=== PATIENT | female | born 1985 | race Caucasian/White ===

== ENCOUNTER 2022-07-31 10:03 | Emergency (ER) | payer OTHER, SELFPAY ==
[2022-07-31 10:21] VITALS: BP 128/92; PULSE 100; RESP 18; TEMP 36.6; O2SAT 100
--- NOTE | 2022-07-31 10:29 | ED.GENADULT ---
HPI - General Adult General Chief complaint: Headache Stated complaint: migraine History of Present Illness HPI narrative: Patient is a 36 y/o female who presents to the [facility] via POV for an evaluation of a migraine that began 4 days ago. She reports that the pain is located on right frontal region of head. She reports pain to be moderate, constant, and pressure like in nature. She also reports intermittent nausea. No relief after taking ibuprofen, tylenol, warm compresses, and massage. Light and noise worsen pain. Hx of migraines and today's symptoms are identical to previous migraines. Related Data Home Medications Medication Instructions Recorded Confirmed alprazolam 1 mg tablet 1 mg BID 07/31/22 07/31/22 Allergies Allergy/AdvReac Type Severity Reaction Status Date / Time No Known Allergies Allergy Verified 07/31/22 10:27 Review of Systems Review of Systems: Pertinent negatives: Trauma, fever, chills, sweats, change in appetite, poor p.o. intake, worst headache of life, dizziness, lymphadenopathy, neck pain, vision changes, swelling, erythema, weakness, syncope, vertigo, LOC, seizure activity, memory loss, difficulty with coordination/gait/equilibrium, paresthesias, abdominal pain, nausea, vomiting, diarrhea, constipation, shortness of breath, cough, chest pain, and heart palpitations/murmurs. PMFSH Comments I have reviewed and agree with the patient's past medical, surgical, social, and family hx as documented by the RN. There is no relevant family history pertinent to the presenting complaint. Course Course Emergency Course: GENERAL: Well-appearing, well-nourished, and in no acute distress. Appears uncomfortable. HEAD: Normocephalic, atraumatic. No sinus tenderness or facial swelling appreciated. No evidence of ear bleeding or drainage from ears. No evidence of foreign bodies. No signs of basilar skull fracture: no hemotympanum, vazquez's sign, or raccoon's eyes. EYES: PERRLA and EOMI. No evidence of erythema, swelling, or drainage. ENT: Bilateral external ears and ear canals normal. Bilateral TMs are normal. No TM perforation. Nares clear, no septal hematoma or epistaxis. Bilateral turbinates without erythema/ swelling. Mucous membranes moist and pink. Uvula is midline without erythema and swelling. No evidence of petechial rash, cobblestoning, lesions, ulcers, erythema, swelling, exudates, peritonsillar abscess, tenting, or drooling. Breath odor and voice normal. NECK: Supple. No injury or pain appreciated. No lymphadenopathy or nuchal rigidity appreciated. CHEST: Bilateral lung valero are clear to auscultation. No respiratory distress. No evidence of cough or pleuritic cp upon examination. No evidence of deformity, flail chest, hematomas, contusions, lacerations. HEART: Regular rate and rhythm. No murmur, gallop, or rub heard. ABDOMEN: Soft, nontender, nondistended, normal active bowel sounds in all quadrants. No guarding. No rebound tenderness. No pulsatile or palpable abdominal mass(es). No CVAT. No evidence of seat belt sign. BACK: Full ROM. No evidence of deformity, spasm, mass, spinal tenderness, or swelling. Bilateral SLR tests negative. EXTREMITIES: Normal range of motion. No edema. SKIN: Warm, dry, no rash. No evidence of loss of sensation. NEURO: No focal deficits. Alert and oriented x4. EXTREMITIES: No evidence of decreased ROM or pain with active/passive ROM. Pulses palpable at 2+, strength 5/5, and cap refill < 3 seconds in affected extremity. Bilateral biceps, triceps, knee, and ankle reflexes are 2+. Sensation normal. Gait normal. Level of Care: Express Care Visit Vital Signs Vital signs: Vital Signs Temperature 97.8 F 07/31/22 10:21 Pulse Rate 100 07/31/22 10:21 Respiratory Rate 18 07/31/22 10:21 Blood Pressure 128/92 H 07/31/22 10:21 Pulse Oximetry 100 07/31/22 10:21 Oxygen Delivery Room Air 07/31/22 10:21 Tempera
[2022-07-31] MEDS: KETOROLAC (*BKC) 60 MG/2 ML VIAL IM (10:47)
[2022-07-31] MEDS: diphenhydrAMINE HCl CAP 25 MG CAPSULE 50 MG PO (10:48)
== END 2022-07-31 11:12 | disposition home or self-care (01) ==
PROVIDERS: Emergency Provider Nurse Practitioner Family
DX: G43.909 Migraine, unspecified, not intractable, without status migrainosus (principal); F41.9 Anxiety disorder, unspecified
CPT/HCPCS: 96372; 99203; A9270; G0463; J1885

== ENCOUNTER 2022-11-18 17:12 | Emergency (ER) | payer OTHER, SELFPAY ==
[2022-11-18 17:35] VITALS: BP 146/105; PULSE 86; RESP 20; TEMP 36.6; O2SAT 99
--- NOTE | 2022-11-18 20:11 | PC.NURSE ---
no answer at triage 2011
== END 2022-11-18 20:28 | disposition left against medical advice (07) ==
PROVIDERS: PCP Nurse Practitioner Family
DX: R10.2 Pelvic and perineal pain (principal)
CPT/HCPCS: 99199

== ENCOUNTER 2022-11-19 08:20 | Emergency (ER) | payer OTHER, SELFPAY ==
[2022-11-19 08:34] VITALS: BP 124/81; PULSE 85; RESP 18; TEMP 36.4; O2SAT 100
--- NOTE | 2022-11-19 08:48 | ED.ABDPAIN ---
HPI - Abdominal Pain General Chief Complaint: Abdominal Pain Stated Complaint: Abdominal Pain Time Seen by Provider: 11/19/22 08:49 Source: patient, RN notes reviewed and old records reviewed Mode of arrival: ambulatory Limitations: no limitations History of Present Illness HPI narrative: 37-year-old female presents to the [facility] with complaints of right lower quadrant abdominal pain for 3 days. Patient denies any previous abdominal surgeries. Denies fevers. Patient states that she went to the ER last night, waited 3 hours and left because they did nothing for her. 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 Denies nausea or vomiting. Only comfortable spot is when she is in a position MD elicited complaint: abdominal pain Onset (ago): day(s) (3) Related Data Allergies Allergy/AdvReac Type Severity Reaction Status Date / Time No Known Allergies Allergy Verified 11/19/22 08:41 Review of Systems Review of Systems: All systems reviewed & are unremarkable except as noted in HPI and below Constitutional: Constitutional: Reports no additional constitutional complaints Eyes: Eyes: Reports no additional eye complaints ENT: Reports system reviewed and no additional complaints, except as documented Cardiovascular: Cardiovascular: Reports no additional cardiovascular complaints, Denies chest pain and Denies dyspnea Respiratory: Respiratory: Reports no additional respiratory complaints, Denies chest congestion, Denies cough and Denies dyspnea Gastrointestinal: Gastrointestinal: Reports as per HPI, Reports abdominal pain (RLQ), Denies nausea and Denies vomiting Musculoskeletal: Musculoskeletal: Reports no additional musculoskeletal complaints Integumentary/Breasts: Skin/Breast: Reports system reviewed and no additional complaints, except as docu Neurologic: Reports system reviewed and no additional complaints, except as documented Psychiatric: Psychiatric: Reports no additional psychiatric complaints Allergic/Immunologic: Allergic/Immunologic: Reports no additional allergic/immunologic complaints PMFSH Past Medical History Medical History Anemia Anxiety COVID 08/29/22 Encounter to establish care History of frequent headaches Migraine headache without aura Morbid obesity with BMI of 45.0-49.9, adult Family History Family History Grandparent Cancer Father Diabetes mellitus Hypertension Mother Depression Anxiety Daughter Anxiety Depression Social History Social History Smoking status: Never smoker Alcohol intake: never Substance use: never Substance use type: does not use Lack of Transportation: No Lack of Food: Never True Current Housing: I Have Housing Concerned About Future Housing: No Difficulty Paying Gas/Electric Bills: No Difficulty Paying for Meds: No Currently Unemployed: No Education: High School Diploma/GED Difficulty w/ Childcare or Family Care: No Comments At the time of my signature, I reviewed and agree with the nursing past medical, surgical, social, and family history. There is no relevant family history pertinent to the patient complaint. Exam Const: General: cooperative, healthy appearing, comfortable, no acute distress, well developed, alert and well nourished Nutritional Appearance: well nourished and obese Orientation/consciousness: patient oriented x3 Limitations: no limitations HENMT: Head: normal to inspection Ears: hearing grossly normal bilaterally and external ears normal Face/Nose/Sinus: Normal external nose present, Normal nares present, Normal nasal mucous membranes and turbinates present and normal facial exam Face and sinus: normal facial exam Eyes: General: appearance normal, both eyes and all related structures Align
== END 2022-11-19 09:00 | disposition short-term general hospital (02) ==
LOC: EXPTROY 08:22
PROVIDERS: Emergency Provider Nurse Practitioner; PCP Nurse Practitioner Family
DX: R10.31 Right lower quadrant pain (principal)
CPT/HCPCS: 99212; G0463

== ENCOUNTER 2022-11-19 09:14 | Emergency (ER) | payer OTHER, SELFPAY ==
--- NOTE | ~2022-11-19 | CT_ITS ---
EXAMINATION: CT abdomen pelvis w con DATE: 11/19/2022 12:07 INDICATION: Right lower quadrant abdominal pain TECHNIQUE: Computed tomography (CT) of the abdomen and pelvis was performed with 100 mL Omnipaque-350 intravenous contrast. Automated exposure control and iterative reconstruction technique were employe d. The dose-length product was 1528.59 mGy-cm. COMPARISON: None FINDINGS: Mild atelectasis in the right middle lobe. Heart size is normal. No pericardial or pleural effusion. Focal hepatic steatosis at the ligamentum teres. Small hepatic calcification consistent with old gran ulomatous disease. Spleen, pancreas, bilateral adrenal glands and kidneys are normal. Bowels includin g the appendix are normal. Thin peripheral rim of enhancement at a 2.8 cm right ovarian cyst/follicle which abuts the posterior margin of the appendix. Left ovary, uterus and bladder are unremarkable. M inimal likely physiologic free fluid in the pelvis. No pathologically enlarged abdominal or pelvic ly mphadenopathy. Bones are unremarkable. IMPRESSION: 1. Small amount of likely physiologic free fluid in the pelvis and 2.8 cm right ovarian cyst/follicle which abuts the posterior margin of the normal appendix. No other acute intra-abdominal/pelvic proce ss. Reviewed, dictated and finalized at location A. [facility] PRIVATE IMPRESSION: 1. Small amount of likely physiologic free fluid in the pelvis and 2.8 cm right ovarian cyst/follicle which abuts the posterior margin of the normal appendix. No other acute intra-abdominal/pelvic process.
--- NOTE | ~2022-11-19 | US_ITS ---
Pelvic ultrasound. Clinical History: Right-sided pelvic pain Technique: Realtime transabdominal and transvaginal scanning of the pelvis was performed. Color flow Doppler and Doppler spectral analysis were performed. Findings: The uterus is anteverted. The endometrial stripe has a thickness of 19 mm. No focal mass i s identified. The right ovary measures 2.4 x 3.0 x 2.6 cm. No significant right ovarian or adnexal mass is seen. V ascular flow present in the right ovary on Doppler spectral analysis. The left ovary is not visualized. No significant left ovarian or adnexal mass is seen. There is trace free fluid in the cul de sac. Impression: Uterus and right ovary unremarkable. Left ovary not seen. Reviewed, dictated and finalized at [facility]. ORY HAND Impression: Uterus and right ovary unremarkable. Left ovary not seen.
[2022-11-19 09:19] VITALS: BP 135/80; PULSE 87; RESP 16; TEMP 36.7; O2SAT 100
--- NOTE | 2022-11-19 09:27 | ED.ABDPAIN ---
HPI - Abdominal Pain General Chief Complaint: Abdominal Pain Stated Complaint: RLQ ABD PAIN Time Seen by Provider: 11/19/22 09:22 History of Present Illness HPI narrative: Patient is a 37-year-old female with a history of migraine headaches, anxiety, here for evaluation of right lower quadrant abdominal pain for the past 3 days. Patient states the pain started out as a dull cramp but has since progressed in severity. The pain is relatively constant now. She has not attempted any medicine for her pain. She denies any associated symptoms, including nausea, vomiting, diarrhea, constipation, fevers, chills, vaginal discharge, dysuria, urgency or frequency. She has had no abdominal surgeries. Denies chance of . Related Data Allergies Allergy/AdvReac Type Severity Reaction Status Date / Time No Known Allergies Allergy Verified 11/19/22 08:41 Review of Systems Review of Systems: Gen.: Denies fevers or chills Eyes: Denies eye pain or visual change ENT: Denies congestion Respiratory: Denies shortness of breath or cough CV: Denies chest pain or palpitations GI: Reports abdominal pain. Denies nausea, emesis or diarrhea denies burning, urgency, frequency or hematuria Musculoskeletal: Denies back pain or muscle pain Neuro: Denies numbness, tingling, weakness or focal weakness Skin: Denies rash Except as documented, all other systems reviewed and negative [facility] Past Medical History Medical History Anemia Anxiety COVID 08/29/22 Encounter to establish care History of frequent headaches Migraine headache without aura Morbid obesity with BMI of 45.0-49.9, adult Family History Family History Grandparent Cancer Father Diabetes mellitus Hypertension Mother Depression Anxiety Daughter Anxiety Depression Social History Social History Smoking status: Never smoker Alcohol intake: never Substance use: never Substance use type: does not use Lack of Transportation: No Lack of Food: Never True Current Housing: I Have Housing Concerned About Future Housing: No Difficulty Paying Gas/Electric Bills: No Difficulty Paying for Meds: No Currently Unemployed: No Education: High School Diploma/GED Difficulty w/ Childcare or Family Care: No Exam Narrative: APPEARANCE: Uncomfortable appearing, obese. Head: Normocephalic and atraumatic. EYES: PERRLA/EOMI, conjunctivae clear NOSE: No nasal drainage EARS: External ear normal in appearance THROAT: Oropharynx is clear. Mucous membranes are moist. NECK: Supple. No adenopathy, no masses. RESPIRATORY: Airway patent, respirations nonlabored. Clear to auscultation bilaterally, no rales, rhonchi, wheezing. CARDIOVASCULAR: Regular rate and rhythm without murmurs, rubs, or gallops. ABDOMINAL: Tender to palpation in the right lower quadrant with guarding. Normoactive bowel sounds. Soft. MUSCULOSKELETAL: Extremities are warm and well-perfused. Moves all extremities well. No edema. NEURO: Normal speech. No focal neurologic deficits. SKIN: Skin is warm and dry. No rashes. PSYCHIATRIC: Normal affect/mood.. Course Vital Signs Vital signs: Vital Signs Temperature 98.1 F 11/19/22 09:19 Pulse Rate 87 11/19/22 09:19 Respiratory Rate 16 11/19/22 09:19 Blood Pressure 135/80 11/19/22 09:19 Pulse Oximetry 100 11/19/22 09:19 Oxygen Delivery Room Air 11/19/22 09:19 Temperature 98.1 F 11/19/22 09:19 Pulse Rate 87 11/19/22 09:19 Respiratory Rate 16 11/19/22 09:19 Blood Pressure 135/80 11/19/22 09:19 Pulse Oximetry 100 11/19/22 09:19 Oxygen Delivery Room Air 11/19/22 09:19 MDM - Abdominal Pain MDM Narrative Medical decision making narrative: 37-year-old female here for evaluation of right lower quadrant abdominal pain for the past 3 days. Jone
[2022-11-19 10:05] LABS: Alanine Aminotransferase 19 U/L (6-35); Albumin Level 4.2 g/dL (3.5-5.1); Alkaline Phosphatase 99 U/L (38-126); Anion Gap 5 mmol/L (8-16); Aspartate Amino Transferase 18 U/L (14-36); Bilirubin,Total 0.5 mg/dL (0.2-1.3); Blood Urea Nitrogen 15 mg/dL (7-17); Calcium 8.7 mg/dL (8.4-10.2); Carbon Dioxide 24 mmol/L (22-30); Chloride 104 mmol/L (98-107); Estimated CRCL calculation 111 ml/min; Estimated Glomerular Filt Rate > 60; Glucose 94 mg/dL (65-110); Lipase 65 U/L (23-300); Sodium 133 mmol/L (137-145)
[2022-11-19 10:16] LABS: Basophils Absolute Auto 0.1 K/mm3 (0.0-0.1); Basophils Percent Auto 1.3 % (0.2-1.2); Eosinophils Absolute Auto 0.1 K/mm3 (0-0.3); Eosinophils Percent Auto 2.4 % (0-4.4); Hemoglobin 12.1 g/dL (12.0-15.0); Immature Granulocyte Absolute 0.01 K/mm3 (0.00-0.031); Immature Granulocyte Percent A 0.2 % (0-0.5); Lymphocytes Absolute Auto 1.63 K/mm3 (0.9-3.2); Lymphocytes Percent Auto 35.9 % (18.3-44.2); Mean Corpuscular HGB Conc 28.8 g/dl (32-36); Mean Corpuscular Hemoglobin 27.1 pg (26-34); Mean Platelet Volume 10.8 fl (7.4-10.4); Monocytes Absolute Auto 0.6 K/mm3 (0.1-0.6); Monocytes Percent Auto 12.6 % (2.6-8.5); Neutrophils Absolute Auto 2.2 K/mm3 (1.3-6.7); Neutrophils Percent Auto 47.6 % (45.5-73.1); Platelet Count Result 260 k/mm3 (150-375); Red Blood Count 4.47 M/mm3 (4.2-5.4); Red Cell Distribution Width 13.4 % (11.5-14.5); White Blood Count 4.5 K/mm3 (4.5-10.0)
[2022-11-19] MEDS: MORPHINE SULFATE (*CRX) 4 MG/ML INJ IV PUSH (11:29)
[2022-11-19] MEDS: SODIUM CHLORIDE 0.9% IV 1,000 ML 999 ML IV CONT (11:29)
[2022-11-19 11:30] LABS: Beta HCG Quantitative < 2.39 mIU/ML
[2022-11-19 11:43] LABS: Appearance Urine Clear (Clear); Bilirubin Urine Negative (Negative); Blood Urine Negative (Negative); Color Urine Yellow (Yellow); Glucose Urine UA Negative (Negative); Ketones Urine Negative (Negative); Leukocyte Esterase Ur Negative LEU/UL (Negative); Nitrate Urine Negative (Negative); Protein Urine Negative (Negative); Urobilinogen Urine 0.2 mg/dL (<2.0)
[2022-11-19 11:59] LABS: Add Urine Microscopic? NO
[2022-11-19] MEDS: KETOROLAC 15 MG/ML VIAL (*BKC) IV PUSH (13:45)
[2022-11-19 14:04] VITALS: BP 133/64; PULSE 80; RESP 12; O2SAT 99
== END 2022-11-19 14:05 | disposition home or self-care (01) ==
PROVIDERS: Emergency Provider Physician Assistant; PCP Nurse Practitioner Family
DX: N83.201 Unspecified ovarian cyst, right side (principal)
CPT/HCPCS: 36415; 74177; 76830; 76856; 80053; 81003; 83690; 84702; 85025; 96361; 96374; 96375; 99284; J0131; J1885; J2270; J7030; Q9967

== ENCOUNTER 2022-12-16 16:24 | Emergency (ER) | payer OTHER, SELFPAY ==
[2022-12-16 16:45] VITALS: BP 155/97; PULSE 93; RESP 18; TEMP 36.4; O2SAT 99
--- NOTE | 2022-12-16 17:14 | ED.LOWEXIN ---
HPI - Extremity Injury (Lower) General Chief Complaint: Extremity Injury, Lower Stated Complaint: Lt Ankle Pain Time Seen by Provider: 12/16/22 17:14 Source: patient Mode of arrival: ambulatory Limitations: no limitations History of Present Illness HPI Narrative: 37-year-old female presenting for complaint of left lateral ankle pain/burning sensation for 5 days. She denies known injury. She states pain is constant, it feels like it is burning at rest and Experiences sharp pain with walking. She has taken occasional ibuprofen for pain. She denies swelling, bruising, numbness, tingling, weakness of the extremity. She denies history of similar symptoms. Related Data Home Medications Medication Instructions Recorded Confirmed ubrogepant 100 mg tablet (Ubrelvy) 100 mg PO .PRN PRN Migraine 12/16/22 12/16/22 Headache venlafaxine 75 mg tablet 75 mg PO DAILY 12/16/22 12/16/22 Allergies Allergy/AdvReac Type Severity Reaction Status Date / Time No Known Allergies Allergy Verified 12/16/22 16:54 Review of Systems Review of Systems: CONSTITUTIONAL: Denies body aches, fever, chills EYES: Denies visual changes ENT: Denies rhinorrhea, congestion CARDIOVASCULAR: Denies chest pain, palpitations, or edema. RESPIRATORY: Denies cough or dyspnea. GASTROINTESTINAL: Denies abdominal pain, nausea, vomiting, or diarrhea. SKIN: Denies rash, itching, or wounds. MUSCULOSKELETAL: Per HPI NEUROLOGIC: Denies headache, numbness, tingling, or weakness. All systems reviewed & are unremarkable except as noted in HPI and below PMFSH Past Medical History Medical History Anemia Anxiety COVID 08/29/22 Encounter to establish care History of frequent headaches Hyperlipidemia Migraine headache without aura Morbid obesity with BMI of 45.0-49.9, adult Screening for diabetes mellitus Family History Family History Grandparent Cancer Father Diabetes mellitus Hypertension Mother Depression Anxiety Daughter Anxiety Depression Social History Social History Smoking status: Never smoker Alcohol intake: never Substance use: never Substance use type: does not use Lack of Transportation: No Lack of Food: Never True Current Housing: I Have Housing Concerned About Future Housing: No Difficulty Paying Gas/Electric Bills: No Difficulty Paying for Meds: No Currently Unemployed: No Education: High School Diploma/GED Difficulty w/ Childcare or Family Care: No Comments At time of signature, I have reviewed and agree with nursing past medical, surgical, social and family history unless otherwise noted. Please see nursing chart for further information. There is no relevant family history pertinent to the presenting complaint Exam Narrative: GENERAL: Well-appearing EYES: PERRLA, conjunctivae clear NECK: Supple. CHEST: Speaks in full sentences. No respiratory distress. HEART: Regular rate and rhythm. Normal and equal peripheral pulses. EXTREMITIES: Left calcaneal tenderness with palpation laterally, medially and to plantar surface extending to mid dorsal foot. Foot has normal strength and sensation, normal range of motion; endorses pain with movement. No edema or ecchymosis. No open wounds or obvious deformity; alignment normal, pulse palpable and equal bilaterally, skin warm, dry, pink. Capillary refill less than 3 seconds. SKIN: Warm, dry, no rash. Course Course Emergency Course: Patient is aware of diagnosis, understands and agrees to treatment plan. Anticipatory guidance given. Patient agrees to follow-up as directed and is aware of reasons to seek care at the emergency department. Portions of this record may have been created with voice recognition software Level of Care: Express Care Visit Vital Signs Vital signs: Codi
== END 2022-12-16 17:30 | disposition home or self-care (01) ==
PROVIDERS: Emergency Provider Nurse Practitioner Family; PCP Nurse Practitioner Family
DX: M79.672 Pain in left foot (principal); E78.5 Hyperlipidemia, unspecified; F41.9 Anxiety disorder, unspecified; E66.01 Morbid (severe) obesity due to excess calories; Z68.43 Body mass index [BMI] 50.0-59.9, adult
CPT/HCPCS: 99213; G0463

== ENCOUNTER 2023-01-14 14:29 | Outpatient (CLI) | payer OTHER, SELFPAY ==
--- NOTE | ~2023-01-14 | XR_ITS ---
EXAMINATION: XR pelvis 1-2V DATE: 01/14/2023 14:51 INDICATION: Pelvic and perineal pain TECHNIQUE: An anteroposterior view of the pelvis was obtained. COMPARISON: 11/19/2022 FINDINGS: Bone alignment is normal. No fracture or suspected avascular necrosis. Mild bilateral sacroiliac oste oarthritis. Bilateral hip joint spaces are normal. Phleboliths in the pelvis. IMPRESSION: 1. Mild bilateral sacroiliac osteoarthritis. Reviewed, dictated and finalized at location B.
== END 2023-01-14 14:30 | disposition home or self-care (01) ==
PROVIDERS: PCP Nurse Practitioner Family; Visit Provider Obstetrics & Gynecology
DX: M47.818 Spondylosis without myelopathy or radiculopathy, sacral and sacrococcygeal region (principal); R10.2 Pelvic and perineal pain
CPT/HCPCS: 72170

== ENCOUNTER 2023-02-07 09:21 | Emergency (ER) | payer OTHER, SELFPAY ==
[2023-02-07 09:29] VITALS: BP 133/85; PULSE 93; RESP 16; TEMP 36.2; O2SAT 99
[2023-02-07 09:31] VITALS: BP 133/85; PULSE 93; RESP 16; TEMP 36.2; O2SAT 99
--- NOTE | 2023-02-07 09:41 | ED.SKABFB ---
HPI - Skin/Abscess/Foreign Bdy General Chief complaint: Skin/Abscess/Foreign Body Stated complaint: rash Time Seen by Provider: 02/07/23 09:41 Source: patient Mode of arrival: ambulatory Limitations: no limitations History of Present Illness HPI narrative: 37-year-old female presented for complaint of rash over body surface for about 5 days. She states this started about 2 days after she had a Nexplanon placed in the left arm. States the rash started the lower left arm and has spread. Rash is not on the face. States this red and itching. She denies pain or drainage from any of the sites. She denies any other changes to lotion, soap, detergent etc.. She denies shortness of breath, wheezing, lips, tongue, or throat swelling. Taking 3 benadryl at night. Contacted her ObGyn who advised steroid cream. Related Data Home Medications Medication Instructions Recorded Confirmed ubrogepant 100 mg tablet (Ubrelvy) 100 mg PO .PRN PRN Migraine 12/16/22 02/07/23 Headache Allergies Allergy/AdvReac Type Severity Reaction Status Date / Time No Known Allergies Allergy Verified 02/07/23 09:30 Review of Systems Review of Systems: CONSTITUTIONAL: Denies body aches, fever, chills, or sweats. EYES: Denies visual changes, redness, or discharge. ENT: Denies rhinorrhea, congestion CARDIOVASCULAR: Denies chest pain, palpitations, or edema. RESPIRATORY: Denies cough or dyspnea. GASTROINTESTINAL: Denies abdominal pain, nausea, vomiting, or diarrhea. SKIN: per HPI MUSCULOSKELETAL: Denies back pain, joint pain, or myalgia. NEUROLOGIC: Denies headache, numbness, tingling, or weakness. [facility] Past Medical History Medical History Anemia Anxiety COVID 08/29/22 Encounter to establish care History of frequent headaches Hyperlipidemia Migraine headache without aura Morbid obesity with BMI of 45.0-49.9, adult Screening for diabetes mellitus Family History Family History Grandparent Cancer Father Diabetes mellitus Hypertension Mother Depression Anxiety Daughter Anxiety Depression Social History Social History Smoking status: Never smoker Alcohol intake: never Substance use: never Substance use type: does not use Lack of Transportation: No Lack of Food: Never True Current Housing: I Have Housing Concerned About Future Housing: No Difficulty Paying Gas/Electric Bills: No Difficulty Paying for Meds: No Currently Unemployed: No Education: High School Diploma/GED Difficulty w/ Childcare or Family Care: No Comments At time of signature, I have reviewed and agree with nursing past medical, surgical, social and family history unless otherwise noted. Please see nursing chart for further information. There is no relevant family history pertinent to the presenting complaint Exam Narrative: GENERAL: Well-appearing HEAD: Normocephalic, atraumatic. EYES: conjunctivae clear, and EOMI. ENT: Mucous membranes moist. Oropharynx without edema, erythema or lesions. NECK: Supple. No lymphadenopathy CHEST: Clear to auscultation. HEART: Regular rate and rhythm. SKIN: Warm, dry. Scattered erythematous raised papular rash over body surface sparing upper torso and head. No apparent urticaria or oozing. NEURO: Alert and oriented x3. Course Course Emergency Course: Patient is aware of diagnosis, understands and agrees to treatment plan. Anticipatory guidance given. Patient agrees to follow-up as directed and is aware of reasons to seek care at the emergency department. Portions of this record may have been created with voice recognition software Level of Care: Express Care Visit Vital Signs Vital signs: Vital Signs Temperature 97.1 F L 02/07/23 09:29 Pulse Rate 93 02/07/23 09:29 Respiratory Rate 16 02/07/23 09:29 B
== END 2023-02-07 09:55 | disposition home or self-care (01) ==
PROVIDERS: Emergency Provider Nurse Practitioner Family; PCP Nurse Practitioner Family
DX: L30.9 Dermatitis, unspecified (principal); E78.5 Hyperlipidemia, unspecified; E66.01 Morbid (severe) obesity due to excess calories; Z68.43 Body mass index [BMI] 50.0-59.9, adult; Z86.16 Personal history of COVID-19
CPT/HCPCS: 99213; G0463

== ENCOUNTER → 2024-02-23 11:03 | Outpatient (CLI) | payer OTHER, SELFPAY | PROVIDERS: PCP Family Medicine; Visit Provider Nurse Practitioner Family | DX: M25.562 Pain in left knee (principal) | CPT/HCPCS: 73562 ==

== ENCOUNTER 2024-03-30 16:10 | Outpatient (CLI) | payer OTHER, SELFPAY ==
--- NOTE | ~2024-03-30 | MR_ITS ---
EXAMINATION: MR knee LT wo con DATE: 03/30/2024 17:06 INDICATION: S83.242A - Other tear of medial meniscus, current injury,... TECHNIQUE: Magnetic resonance imaging (MRI) of the left knee was performed without intravenous contra st. Sequences included axial PD-weighted FS FSE, coronal PD-weighted FSE and PD-weighted FS FSE, sagi ttal PD-weighted FSE, and sagittal T2-weighted FS FSE. COMPARISON: X-ray left knee 02/23/2024 FINDINGS: Medial compartment: Meniscus intact. Mild diffuse cartilage thinning and osteophytosis. Lateral compartment: Meniscus intact. Mild diffuse cartilage thinning and osteophytosis. Patellofemoral compartment: Retinacula intact. Mild osteophytosis. Mild cartilage thinning with partial thickness cartilage signa l abnormality and subchondral cyst formation. Ligaments and tendons: Thickening and intermediate signal intensity at the origin of the LCL. The ACL, PCL, and MCL are inta ct. Remaining flexor and extensor tendons are intact. Fluid: No significant fluid collection. Osseous/other: No suspicious focal or diffuse marrow signal. IMPRESSION: No acute ligamentous or meniscal tear detected. 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 Mild tricompartmental osteoarthritic changes. Reviewed, dictated and finalized at location K.
== END 2024-03-30 16:11 | disposition home or self-care (01) ==
LOC: ANHIMG 16:10
PROVIDERS: PCP Family Medicine; Visit Provider Orthopaedic Surgery
DX: S83.422A Sprain of lateral collateral ligament of left knee, initial encounter (principal); M17.12 Unilateral primary osteoarthritis, left knee; X58.XXXA Exposure to other specified factors, initial encounter
CPT/HCPCS: 73721

== ENCOUNTER 2024-05-08 14:45 | Outpatient (RCR) | payer OTHER, SELFPAY ==
--- NOTE | 2024-04-20 14:15 | OPREHPOC ---
Outpatient Therapy Plan of Care This is a Multidisciplinary Plan of Care that may contain components documented by all disciplines (PT, OT, and ST.) PT Problem 1 PT Problem #1 Knowledge Deficit PT Goal 1 Goal *indep with HEP Target Visit 6 PT Problem 2 PT Problem #2 Pain PT Goal 1 Goal 1* pt report pain at worst rating of 6/10 2* pt report no awakening from sleep due to knee pain 3* LE Functional Scale rating of 46% limitation in activity level Target Visit 6 PT Problem 3 PT Problem #3 Impaired Strength PT Goal 1 Goal increase strength of L hip and knee to improve stability to knee and improve patellar trackin* single leg standing x 10 seconds 2* pt perform mat strengthening exercises x 10 reps with 3# ankle wt Target Visit 6
--- NOTE | 2024-04-20 14:15 | PTOPEVAL1 ---
Assessment and note entered by Amaris Henry, PT Evaluation Information Assessment Status Evaluation Diagnosis L knee pain Onset December 2023 Subjective Information gradual increase in knee pain, no trauma to leg or knee; MRI- subchondral cyst, mild OA, chronic tear of LCL have had 2 injections into knee, help some; script for diclofenac- does not help; no restrictions from dr; activity: work at [employer]- walking and standing ~ 7 hours; Reported Pain Level Pain Score Self Report Additional Pain Score Comments pain range in the past week 2-910; medial knee- stab in knee cap decrease pain: sit, rest, heat increase pain: standing, more activity, squatting with sleeping awaken 2-3 x/week due to knee pain Assessment PT Clinical Summary Nuris has the diagnosis of L knee pain. She reports gradual increase in pain and knee injection x2- helped decrease the pain. LE functional scale self rating of 55% limitation activity level. Walking, activity level and sleeping are disrupted due to pain. With the evaluation: pain over medial joint line & distal- medial hamstring; pain is increased with knee flexion, prone hip extension and side lying hip ab & adduction motions; single leg standing 3 seconds due to pain in knee. Skilled PT services are indicated for modalities to decrease pain; therapeutic exercises to increase hip and knee strength and improve position of knee with education for HEP and pain management. Plan of Care Interventions Electrical Stimulation,Hot Pack/Cold Pack,Manual Therapy,Neuro Re-education,Patient Education,Therapeutic Activities,Therapeutic Exercise,Ultrasound,Other Other Interventions taping, [facility] PT Services Indicated Yes Treatment Frequency and 1-2x/wk for 6 visits Duration These treatments will address the objective and functional deficits as defined above. The patient will be advanced safely and appropriately in order for the patient to progre
--- NOTE | 2024-04-30 08:57 | PCPTNOTE ---
Pt NS visit today, called and left message of next appt. day and time. This is 2 NS.
--- NOTE | 2024-05-10 09:14 | PCPTNOTE ---
Pt canceled appt. this morning stating she could not make it.
--- NOTE | 2024-05-15 10:30 | PCPTNOTE ---
pt did not show for today's reevaluation appt; called and left her a voice mail message.
--- NOTE | 2024-06-04 10:43 | PTOPDC ---
Assessment and note entered by Amaris Henry, PT Discharge Report Assessment Status Discharge - Pt Not Present Diagnosis L knee pain Onset December 2023 Subjective Information pt was not seen this date. Assessment PT Clinical Summary Nuris received the PT evaluation on April 20 and one treatment session on May 08. She called/canceled 1 and did not show for 3 appointments. Therefore, she will be discharged at this time. The goals were not addressed. Plan of Care PT Services Indicated No
== END 2024-06-04 13:35 | disposition home or self-care (01) ==
LOC: ANHPT 14:45
PROVIDERS: PCP Family Medicine; Visit Provider Orthopaedic Surgery
DX: M17.12 Unilateral primary osteoarthritis, left knee (principal)
CPT/HCPCS: 97110; 97161; 97530

== ENCOUNTER 2024-06-23 11:15 | Emergency (ER) | payer OTHER, SELFPAY ==
[2024-06-23 11:21] VITALS: BP 117/90; PULSE 88; RESP 18; TEMP 36.2; O2SAT 100
--- NOTE | 2024-06-23 11:41 | ED.EAR ---
HPI - Ear Problem General Chief complaint: Ear Stated complaint: Earache Time Seen by Provider: 06/23/24 11:42 Source: patient Mode of arrival: ambulatory Limitations: no limitations History of Present Illness HPI Narrative: 38-year-old female presented for complaint of left ear pain for 2 days. Endorses the pain is sharp and constant. Unrelieved by Tylenol. Denies tinnitus, dizziness, ear drainage, nasal congestion, nausea, vomiting, fevers or chills. MD Complaint: ear pain Related Data Home Medications Medication Instructions Recorded Confirmed mecobalamin (vitamin B12) 1,000 1,000 mcg PO DAILY 02/27/24 06/23/24 mcg chewable tablet etonogestrel 68 mg subdermal See Rx Instructions .Route .COMPLEX 06/23/24 06/23/24 implant (Nexplanon) Allergies Allergy/AdvReac Type Severity Reaction Status Date / Time No Known Allergies Allergy Verified 06/23/24 11:26 Review of Systems Review of Systems: CONSTITUTIONAL: Denies malaise, chills, or fever. EYES: Denies visual changes, redness, or discharge. ENT: Denies rhinorrhea, congestion, sinus pain, and sore throat. Reports ear pain CARDIOVASCULAR: Denies chest pain, palpitations, or edema. RESPIRATORY: Denies cough or dyspnea. GASTROINTESTINAL: Denies abdominal pain, nausea, vomiting, diarrhea SKIN: Denies rash or itching. MUSCULOSKELETAL: Denies myalgia. NEUROLOGIC: Denies headache. All systems reviewed & are unremarkable except as noted in HPI and below PMFSH Past Medical History Medical History Acute sinusitis Anemia Anxiety B12 deficiency BMI 50.0-59.9, adult COVID 08/29/22 Elevated BP without diagnosis of hypertension Encounter to establish care Heartburn History of frequent headaches Hyperlipidemia Hypertension Left knee pain Migraine headache without aura Morbid obesity with BMI of 45.0-49.9, adult Screening for diabetes mellitus Tachycardia Surgical History Surgical History History of tubal ligation Family History Family History Grandparent Cancer Father Diabetes mellitus Hypertension Mother Depression Anxiety Daughter Anxiety Depression Social History Social History Smoking status: Never smoker Alcohol intake: never Substance use: never Substance use type: does not use Do You Feel Safe in your Home?: Yes Lack of Transportation: No Lack of Food: Never True Current Housing: I Have Housing Concerned About Future Housing: No Difficulty Paying Gas/Electric Bills: No Difficulty Paying for Meds: No Currently Unemployed: No Education: High School Diploma/GED Difficulty w/ Childcare or Family Care: No Living arrangements: with family Occupation/Education: occupation Additional occupation/education comments: [employer] Gender identity (if verbalized by the patient): Female Comments At time of signature, agree with nursing past medical, surgical, social and family history. There is no relevant family history pertinent to the presenting complaint Exam Narrative: GENERAL: Well-appearing, well-nourished, and in no acute distress. HEAD: Normocephalic EYES: PERRLA, conjunctivae clear ENT: Nares clear. Mucous membranes moist. Full dentures. TMs pearly stanley with normal light reflex and mild clear effusion bilaterally; no tragal tenderness. Oropharynx not erythematous without lesions. NECK: Supple. No lymphadenopathy CHEST: Clear to auscultation, breath sounds equal. HEART: Regular rate and rhythm. No murmur heard. SKIN: Warm, dry, no rash. NEURO: Alert and oriented x3. PSYCH: Normal mood and affect Course Course Emergency Course: Patient is aware of diagnosis, understands and agrees to treatment plan. Anticipatory guidance given. Patient agrees to follow-up as dir
== END 2024-06-23 11:49 | disposition home or self-care (01) ==
PROVIDERS: Emergency Provider Nurse Practitioner Family; PCP Family Medicine
DX: H65.03 Acute serous otitis media, bilateral (principal); E53.8 Deficiency of other specified B group vitamins; Z86.16 Personal history of COVID-19; E78.5 Hyperlipidemia, unspecified; I10 Essential (primary) hypertension; E66.01 Morbid (severe) obesity due to excess calories; Z68.43 Body mass index [BMI] 50.0-59.9, adult
CPT/HCPCS: 99213; G0463

== ENCOUNTER 2025-04-05 13:28 | Emergency (ER) | payer OTHER, SELFPAY ==
--- OUTSIDE RECORDS SUMMARY | 2025-04-05 13:30 | XMS_ITS | Continuity of Care Document ---
Author Organization [employer] Address [address] [place] [address] Phone Care Team Providers Care Patrol Supervisor Name Role Phone Jose R Napier DMD Unavailable Unavailable Medications Medication Instructions Dosage Effective Dates (start - stop) Status Comments hydrocodone 7.5 mg-acetaminophen 325 mg tablet take 1 tablet by mouth every four hours to relieve pain - Active Procedures Procedure Date Extraction, Erupted Tooth Or Exposed Emeli t (Elevati Extraction, Erupted Tooth Or Exposed Emeli t (Elevati Extraction, Erupted Tooth Or Exposed Emeli t (Elevati Extraction, Erupted Tooth Or Exposed Emeli t (Elevati Extraction, Erupted Tooth Or Exposed Emeli t (Elevati Extraction, Erupted Tooth Or Exposed Emeli t (Elevati Extraction, Erupted Tooth Or Exposed Emeli t (Elevati Extraction, Erupted Tooth Or Exposed Emeli t (Elevati Limit Oral Eval-prob Focused OBSERVATION CARE Advance Directives Directive Yes / No Effective Date File Name No Information Encounters Encounter Description Practice Location Reason(s) For Visit Diagnoses Date Provider Providers Copied on Encounter [facility], [address], [place], [place], [id number], [place] tel:[phone] [facility] DEN-Dental caries, unspecifiedDEN -Acute apical periodontitis of pulpal origin [address] Karthikeyan Odell. [address], [place], [place], [id number] , [place]. tel:[phone] Referring Provider: Jose R Kays E, [address], [place], [address] . tel:[phone] [facility], [address], [place], [place], [id number], [phone] [facility] DEN-Dental caries, unspecified Maryse Bullock. [address], [place], [place], [id number] , [place]. [phone] Referring Provider: Kobe Dumont, [address], [place], [address] . tel:[phone] [facility], [address], [place], [place], [id number], [place] tel:[phone] [facility] DEN-Encounter for dental exam and cleaning w abnormal findings Nilemarisol Kobe. [address], [place], [place], [id number] , [place]. tel:[phone] Referring Provider: Kobe Dumont, [address], [place], [address] . tel:[phone] [facility], [address], [place], [place], [id number], [phone] [facility] No Information 1 Naren Foreman. [address] [place], [address], [place]. tel:[phone] Referring Provider: Toni Samuel, [address] [place], [address]. Family History Family Member Type Diagnosis Age At Onset No Information Payers Payer name Insurance type Covered republican ID Sharoncarmen raúlesthela(s) Nura [employer] CI [id number] Social History Type Description Quantity Date Captured Comments Sex Female Smoking Status No Information Chief Complaint And Reason For Visit No Information Reason For Referral Reason For Referral No Information History Of Present Illness Encounter Date Complaint History Of Prese nt Illness No Information Functional Status Date Functional Assessmen t No Information Instructions Date Instruction Additional Infor mation No Information Assessments Type Assessment Date No Information Patient Care Teams Name Effective Dates (start - stop) Status Members No Information
--- OUTSIDE RECORDS SUMMARY | 2025-04-05 13:30 | XMS_ITS | Data Portability ---
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 Plan of Treatment Reminders Order Date Submit Date Provider Last Modified By Organization Details Last Modified Time Details Appointments None recorded. Lab test, urine 2022 023 [place], [address], [place], [address], 10:53:44 Referral None recorded. Procedures None recorded. Surgeries None recorded. Imaging US, transvagina l 2022 023 [email or web address] [place], [address], [place], [address], 18:51:46 Medication Orders tramadol 50 mg tablet 2022 023 [id number], [address], [place], [place], [id number], 11:34:45 Patient TargetsNo targets recorded. Patient InstructionsNo instructions recorded. Reason for Referral None Reported. Results Created Date Observation Date Name Description Value Unit Range Abnormal Flag Note LastModifiedBy Organization Detail LastModifiedTime 01/11/2001/10/2023 SURGI LOYDA PATHO LOGY surgical pathology SEE RESULT S BELOW CASE REPOR T: Surgi loyda Patho logy Repor t Case: [id number] Autho rizin g Provi chaim: Debby Moore MD Colle cted: 01/10 1329 Order ing Locat ion: [place] Patho logy Recei shu: 01/11 0254 Patho logis t: Patrick Felix MD Speci men: Endom etriu m, Endom etria l FINAL DIAGN OSIS: Endom etriu m, curet tage: -Secr etory phase endom etriu m (appr oxima tely day 17). -No hyper plasi a or malig brenden ident ified . Elect danielle acosta by Patrick Felix MD on 2022 at 9:33 AM ----- ----- ----- ----- ----- ----- ----- ----- ----- ----- ----- ----- ----- ----- ----- ----- ----- ---- CLINI LOYDA INFOR MATIO N: n85.9 MICRO SCOPI C DESCR IPTIO N: A micro scopi c exami natio n was perfo rmed. GROSS DESCR IPTIO N: A. Endom etriu m. The speci men is label ed with the patie nt's name, demog raphi cs and endom etria l curet tings . Recei shu in forma elliot is a 4.5 x 3.2 x 1.0 [address] [facility] [place] tissu e. The entir e speci men is submi tted in casse ttes A1-A7 . Gross ed by Jadon Pereyra on Not Available [facility] (Lab) [address], [place], [address], 01/12/2023 10:35:58 01/11/20 23 01/10/2023 pregn didi test, urine HCG negati ve Not Available [place] [address], [place], [address], 01/10/2023 10:53:00 01/15/20 23 01/14/2023 XR, pelvi s, 1 or 2 view No observ ation record ed. [address], [place], [address], 01/15/2023 10:18:13 02/24/20 23 02/23/2023 US, trans vagin al No observ ation record ed. [email or web address] [place] [address], [place], [address], 02/23/2023 15:50:26 02/24/20 23 02/23/2023 US, trans vagin al No observ ation record ed. [email or web address] [place] [address], [place], [address], 02/23/2023 22:09:55 Result Notes None recorded. Procedures Surgical History Date Name Laterality Status Provider Name and Address Organization Details Recorded Time 01/25/20 23 Control Implant Insertion completed Phillip Moore MD [address], [place], [address], [facility] 01/24/2023 20:42:03 01/11/20 23 Hysteroscopy completed Phillip Moore MD [address], [place], [address], [facility] 01/10/2023 11:35:48 01/11/20 23 Hysteroscopy [facility] 01/17/2023 09:39:18 09/02/20 22 Date of Last Pap Smear completed Ai Calhoun [facility] 11/23/2022 14:27:55 10/31/19 11 Tubal Ligation completed Gill [facility] 09/02/2022 11:37:51 Imaging Results None recorded. Procedure Notes None recorded. Medical Equipment None Reported. Allergies No known drug allergies Medications Name Sig Start Date Stop Date Status Note LastModified by Organization Details LastModified Time cyclobenzap rine 10 mg tablet 09/02 completed Not Available Not Available Not Available venlafaxine ER 75 mg capsule,ext ended release 24 hr 09/02 completed Not Available Not Available Not Available venlafaxine 75 mg tablet TAKE 1 TABLET BY MOUTH TWICE DAILY active Not Available Not Available No t Available ibuprofen 800 mg tablet TAKE 1 TABLET BY MOUTH 2 HOURS BEFORE THE PROCEDURE active Not Available Not Available No t Available alprazolam 1 mg tablet TAKE 1 TABLET BY MOUTH TWICE DAILY active Not Available Not Available No t Available hydrocodone 5 mg-acetamin ophen 325 mg tablet TAKE 1 TABLET BY MOUTH FOUR TIMES DAILY active Not Available Not Available No t Available ondansetron HCl 8 mg tablet TAKE 1 TABLET BY MOUTH 2 HOURS BEFORE THE PROCEDURE active Not Available Not Available No t Available meloxicam 15 mg tablet TAKE 1 TABLET BY MOUTH DAILY active Not Available Not Available No t Available metronidazo le 0.75 % (37.5 mg/5 gram) vaginal gel INSERT ONE APPLICATO RFUL VAGINALLY AT BEDTIME FOR 5 DAYS active Not Available Not Available No t Available famotidine 40 mg tablet TAKE 1 TABLET BY MOUTH DAILY active Not Available Not Available No t Available venlafaxine ER 150 mg capsule,ext ended release 24 hr TAKE 1 CAPSULE BY MOUTH DAILY 09/02 completed Not Available Not Available Not Available phentermine 37.5 mg tablet 37.5 MG ORALLY DAILY MUST ADMINISTE R 30 MINUTES BEFORE OR 1-2 HOURS AFTER BREAKFAST active Not Available Not Available No t Available hydrocodone 10 mg-acetamin ophen 325 mg tablet TAKE 1 TABLET BY MOUTH 2 HOURS BEFORE THE PROCEDURE active Not Available Not Available No t Available tramadol 50 mg tablet TAKE 1 TABLET BY MOUTH EVERY 6 HOURS active Not Available Not Available No t Available amitriptyli ne 50 mg tablet 09/02 completed Not Available Not Available Not Available alprazolam 0.5 mg tablet TAKE 1 TABLET BY MOUTH 2 HOURS BEFORE THE PROCEDURE active Not Available Not Available No t Available zolmitripta n 2.5 mg tablet 09/02 completed Not Available Not Available Not Available prednisone 50 mg tablet TAKE 1 TABLET BY MOUTH DAILY WITH FOOD FOR 5 DAYS 09/02 completed Not Available Not Available Not Available hydrochloro thiazide 25 mg tablet 09/02 completed Not Available Not Available Not Available Alprazolam Intensol 1 mg/mL oral concentrate active Not Available Not Available Not Available metoprolol succinate ER 25 mg tablet,exte nded release 24 hr TAKE 1/2 TABLET BY MOUTH DAILY active Not Available Not Available No t Available ibuprofen 600 mg tablet TAKE 1 TABLET BY MOUTH THREE TIMES DAILY WITH MEALS FOR 5 DAYS active Not Available Not Available No t Available methylpredn isolone 4 mg tablets in a dose pack FOLLOW PACKAGE DIRECTION S active Not Available Not Available No t Available ondansetron 4 mg disintegrat ing tablet DISSOLVE 1 TABLET ON THE TONGUE EVERY 8 HOURS 09/02 completed Not Available Not Available Not Available rizatriptan 5 mg tablet 09/02 completed Not Available Not Available Not Available escitalopra m 10 mg tablet TAKE 1 TABLET BY MOUTH DAILY active Not Available Not Available No t Available escitalopra m 20 mg tablet TAKE 1 TABLET BY MOUTH DAILY active Not Available Not Available No t Available nitrofurant oin monohydrate /macrocryst als 100 mg capsule TAKE 1 CAPSULE BY MOUTH EVERY 12 HOURS FOR 5 DAYS. TAKE WITH A MEAL OR FOOD active Not Available Not Available No t Available FeroSul 325 mg (65 mg iron) tablet TAKE 1 TABLET BY MOUTH EVERY DAY active Not Available Not Available No t Available Nexplanon 68 mg subdermal implant Inject by subcutane ous route. active Not Available Not Available No t Available Slynd 4 mg (28) tablet Take 1 tablet every day by oral route with meals for 90 days. 2021 active Not Available Not Available Not Avai lable Ubrelvy 100 mg tablet active Not Available Not Available No t Available Ubrelvy 50 mg tablet 09/02 completed Not Available Not Available Not Available Ubrelvy active Not Available Not Avail able Not Available Paxlovid 300 mg (150 mg x 2)-100 mg tablets in a dose pack 09/02 completed Not Available Not Available Not Available Vitals Date Recorded Body height Body mass index (BMI) Body weight Systolic blood pressure Diastolic blood pressure Provider Name and Address Organization Details Last Updated DateTime 01/10/2023 154.94 cm 50.3 kg/m2 410650.5 7 g 132 mm[Hg] 93 mm[Hg] Ai Calhoun [facility] 3 10:36:02 Date Recorded Body height Body mass index (BMI) Body weight Systolic blood pressure Diastolic blood pressure Provider Name and Address Organization Details Last Updated DateTime 01/17/2023 154.94 cm 52.5 kg/m2 406847.6 8 g 135 mm[Hg] 96 mm[Hg] [facility] 3 09:38:41 Date Recorded Body height Body mass index (BMI) Body weight Systolic blood pressure Diastolic blood pressure Provider Name and Address Organization Details Last Updated DateTime 01/24/2023 154.94 cm 52.5 kg/m2 756146.6 8 g 125 mm[Hg] 87 mm[Hg] [facility] 3 15:48:28 Date Recorded Body height Body mass index (BMI) Body weight Systolic blood pressure Diastolic blood pressure Provider Name and Address Organization Details Last Updated DateTime 03/07/2023 154.94 cm 48.9 kg/m2 602004.4 2 g 119 mm[Hg] 85 mm[Hg] [facility] 3 11:46:29 Social History Question Answer Notes LastModified by Organizat ion Details LastModified Time Tobacco Smoking Status Never Smoker [facility] 03/07/2023 10:50:41 Do You Have An Advance Directive? No Information n ot available 11/23/2022 Are You Blind Or Do You Have Difficulty Seeing? No Information n ot available 11/23/2022 What Is Your Level Of Caffeine Consumption? Moderate Information not available 11/23/2022 How Much Tobacco Do You Chew? None Information not available 11/23/2022 In The 14 Days Before Symptom Onset, Have You Had Close Contact With A Laboratory-confirm ed COVID-19 While That Case Was Ill? No Information n ot available 11/23/2022 In The 14 Days Before Symptom Onset, Have You Had Close Contact With A Person Who Is Under Investigation For COVID-19 While That Person Was Ill? No Information not available 11/23/2022 Have You Been To An Area Known To Be High Risk For COVID-19? No Information not available 11/23/2022 Are You Deaf Or Do You Have Serious Difficulty Hearing? No Information not available 11/23/2022 What Type Of Diet Are You Following? REGULAR Information n ot available 11/23/2022 What Is The Highest Grade Or Level Of School You Have Completed Or The Highest Degree You Have Received? [id number] Information not available 11/23/2022 Are There Any Guns Present In Your Home? No Information not available 11/23/2022 Do You Use Protection During Sex? No Information not available 11/23/2022 Do You Use Your Seat Belt Or Car Seat Routinely? Yes Information not available 11/23/2022 Do You Have Smoke And Carbon Monoxide Detectors In Your Home? Yes Information not available 11/23/2022 How Much Tobacco Do You Smoke? No Information not available 11/23/2022 Do You Use Sunscreen Routinely? Yes Information not available 11/23/2022 Have You Used IV Drugs? No Information not available 11/23/2022 Sex: Unknown Functional Status Question Answer Note LastModified by Organizat ion Details LastModified Time Do you use any illicit or recreational drugs? No Information not available 09/02/2022 Do you or have you ever used any other forms of tobacco or nicotine? No [email or web address] Information not available 03/07/2023 What is your level of alcohol consumption? None Information not available 09/02/2022 Are you able to walk? 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 Moderate Information not available 11/23/2022 Mental Status Question Answer Note LastModified by Organization D etails LastModified Time Do you feel stressed (tense, restless, nervous, or anxious, or unable to sleep at night)? [id number] Information not available 11/23/2022 Family History Relationship Description Onset Age of this Age Resolved Age Notes LastModified by Organization Details LastModified Time Mother Anxiety disorder [email or web address] Not available 2021 11:36:05 Daughter Anxiety disorder [email or web address] Not available 2021 11:36:05 Medical History Condition Response Other N Blood Transfusion N Dermatologic Disorders N Gestational Diabetes N Anxiety Disorder Y Autoimmune disease N Arthritis N Polyps N Infertility N Acid Reflux (GERD) N Cancer N Varicosities N Stroke N Neurologic/Epilepsy N Fibromyalgia N Headaches Y Kidney Disease N Heart Problems N Kidney or Bladder Problems N Eating Disorder N Art (IVF or FET) N Hepatitis/Liver Disease N No Past Medical History N Urinary Tract Infection N Asthma N Trauma/Violence N Thrombophilias N Allergies (Food, seasonal, environmental ) N Breast Cancer N Drug/Latex Allergies/Reactions N Lung Disease N Defects or Inherited Disease N Breast Problem N Hematologic disorders N Anesthesia Complications N History of STI N Deep Vein Thrombosis N Polycystic ovary syndrome N History of abnormal pap N Endometriosis N High Cholesterol N Thyroid Problems N GI Problems N Anemia Y Psychiatric Illness N Ovarian Cancer N Diabetes N Pulmonary (TB, Asthma) N Eczema N Abuse/Domestic Violence N Depression/ depression N Heart Disease N Pre-Eclampsia N Hypertension N Osteoporosis N Gynecological History Statement/Question Response Date of LMP 08/25/2022 On BCP's at Conception? N N Was last menstrual period normal Y STIs/STDs N HPV Vaccine Y Duration of Flow (days) 7 Current Control Method Implant Frequency of Cycle (Q days) 8 Sexually Active? Y Unknown Age of first menstrual cycle 15 Date of Last Pap Smear 09/02/2022 Sexual Problems? N Desired Control Method None LMP Unknown N Obstetrics History GPAL:G 2 P 2 0 0 2 Type Value Full Term 2 Living 2 Total 2 Past Encounters Encounter ID Performer Location Encounter Start Date Encounter Closed Date Diagnosis/Indication Diagnosis SNOMED-CT Code Diagnosis ICD10 Code Diagnosis Note [id number] Yue Dhillon [facility] [address] [address] 09/02/2022 10:59:27 09/02/2022 14:23:08 Gynecologic examination 86251505 Z01.419 Take Calcium with Vitamin D 1200mg daily if not receiving in daily diet. It is strongly advised to have an annual flu shot and up can obtain at most pharmacies . If you have not had a TDap shot in the last 10 years you should obtain one as well. Discussed with patient & provided with informatio n regarding Gardisil vaccine to prevent the 4 strains for HPV that cause cervical cancer if under age 26. Encourage safe sexual practices, to use condoms and limit partners if not already in a monogamous relationsh ip. Do monthly self breast exams. Have mammogram yearly or every other year depending on family history. BRCA testing is now available for patients with strong genetic history of female cancer. If interested contact the office. Engage in daily exercise of low impact aerobic exercise 45-60 minutes 4-5 times weekly. Avoid tobacco and illicit drugs as well as using moderation with alcohol intake less than 1-2 8 oz beverages daily. This lifestyle behavior pattern will lead to less health conditions and longer life span. If BMI greater than 25 weight watchers or dietary consult advised. Patient received above instructio ns, and questions have been answered. If you have any questions please call or respond to this email. Patient was made aware of the patient portal and may obtain a paper copy of today's plan if desired. Pap/hpv sent STD Screen declined Genetic Screen discussed Colon Screen na Dexa Screen na Routine Labs PCPMammo na Menstrual migraine 73726 000 G43.829 Discussed all control options in great detail. Pt would like to start POP. She is aware of the risks and benefits. She has contraindi cations to use of OCP or other estrogen containing hormonal therapy. Pt will start her pills on the first tuesday following the start of her period. She is aware it is not effective for control the first month. She is also aware of the importance of taking at the same time every day. Encouraged use of condoms as the pill does not protect against STD's. Will return in 3 months for med check. Consent was read and signed. Pt verbalized understand ing. Trial SLYND x 3mos with med checkHx of tubal ligation [id number] [facility] [address] [address] 11/23/2022 13:52:36 11/23/2022 16:33:07 Cyst of right ovary 8718924611 1442080 N83.201 Today we agreed on the following: R/P US x 6wksPain medication x 5 days (discussed use)--writ ten Rx given and copied to chartComfo rt care discussed ED precaution s:Patient is to contact office or go to nearest ED/Urgent care if fever >/= 100.1, pain, excessive bleeding, unusual drainage or swelling in area of concern; or experienci ng worsening sx's or new onset of concerning sx's. Understand ing verbalized . All questions answered to patient satisfacti on. Time spent in visit is a total of 26 mins with at least 50% of visit consisting of counseling and review of plan of care. [id number] Phillip Moore MD [place] [address] [address] 12/09/2022 16:43:56 12/09/2022 17:56:20 Pain in pelvis 33855754 R10.2 [id number] Phillip Moore MD [place] [address] [address] 12/22/2022 14:17:36 12/22/2022 15:59:49 Pain in pelvis 55808499 R10.2 Anovular menstruation 27 135987 N93.8 Lesion of endometrium 92 34872884 9101 N85.9 this patient is a 37-year-ol d female with irregularl y irregular bleeding. Her bleeding is likely anovulator y bleeding. She also is here for follow-up on ultrasound . This is which she primarily her for for ultrasound findings. She has a thickened endometriu m with likely endometria l polyp. We discussed endometria l polyps and thickened endometriu m. We discussed the risk of prolonged anovulator y bleeding. I recommende d that she have hysterosco py D and C with possible polypectom y here in the office. We agreed to that. Talked about treatment of anovulator y bleeding. Talked about prevention of endometria l cancer. She understand s that this is well organ after do going forward. She has agreed to Nexplanon insertion. She needs follow-up ultrasound for left ovarian cyst. Talked about ovarian cyst. She does have some right-side d pain. Her cyst on the left. Perhaps her pain will be improved with remove the cyst. Nexplanon will also be a good treatment for gynecologi c pain. Her pain is intense that time she bleeds. Spent over 40 minutes face-to-fa ce. We talked about endometria l polyps And we discussed pelvic pain.. Talked about on I believe ed bleeding. Talked about ovarian cyst. Talked about 3 complex topics. We talked about the etiology, natural history, treatment. Cyst of ovary 40146728 N 83.209 [id number] Phillip Moore MD [place] [address],[facility] [place] [address] 01/10/2023 10:23:04 01/10/2023 11:57:15 Pre-surgery testing 530627433 Z01.89 Pain in pelvis 80546780 R10.2 Lesion of endometrium 92 45719269 9101 N85.9 Hysterosco py D&C was performed. She tolerated well. There was just thickened endometriu m. There was no polyp. We talked about her pelvic pain for some time. We agreed to treat short-term with narcotic pain medication to control her pain. Her pain is severe. We will follow up in less than a week to talk about her pain and consider treatment options and diagnostic options. [id number] Phillip Moore MD [place] [address],[facility] [place] [address] 01/17/2023 09:27:47 01/17/2023 10:56:53 Irregular periods 14972072 N92.6 This patient is a 37-year-ol d female presents for irregular bleeding follow-up. She would like to be treated with Nexplanon for irregular bleeding and prevention of endometria l cancer. She had hysterosco py D and C for suspected polyp. No polyp was observed. Endometria l curettage was performed. The biopsy was normal. We discussed our plan going forward and I agreed to insert Nexplanon. She will return for that procedure. [id number] Phillip Moore MD [place] [address],[facility] [place] [address] 01/24/2023 15:16:30 01/25/2023 11:38:14 Contraception care management 101032535 Z30.9 Nexplanon inserted without complicati ons. [id number] Phillip Moore MD [place] [address] [address] 02/23/2023 15:15:03 02/23/2023 15:49:59 Cyst of left ovary 5605299610 8569670 N83.292 R10.2 [id number] Phillip Moore MD [place] [address] [address] 03/07/2023 10:50:34 03/07/2023 12:34:13 Pain in pelvis 07171133 R10.2 Cyst of ovary 44349105 N 83.209 7-year-old female who presents for treatment of abnormal uterine bleeding with Nexplanon and ovarian cyst. Ovarian cysts resolve on recent ultrasound . She continues to have some bleeding. Was a little painful. Overall it has improved her bleeding and her pain. Continue to observe. We spent over 20 minutes face-to-fa ce. More than 50% was counseling she will follow-up as needed Health Concerns Section Related Observation LastModified by Organization Detai ls LastModified Time None Recorded Concern Status LastModified by Organization Details LastModified Time None Recorded Advance Directives Directive N: Payers Encounter Date Sequence Insurance Name Policy Number Policy Arreola Covered Member ID Arreola Member ID Guarantor Name 01/10/2023 1 [facility] ON OR AFTER 04/30/21 (MEDICAID REPLACEMENT - HMO) Candie Salazaron [id number] Candie Burns 01/17/2023 1 [facility] ON OR AFTER 04/30/21 (MEDICAID REPLACEMENT - HMO) Candie Burns [id number] Candie Burns 01/24/2023 1 [facility] ON OR AFTER 04/30/21 (MEDICAID REPLACEMENT - HMO) Candie Burns [id number] Candie Burns 02/23/2023 1 [facility] ON OR AFTER 04/30/21 (MEDICAID REPLACEMENT - HMO) Candie Burns [id number] Candie Burns 03/07/2023 1 [facility] ON OR AFTER 04/30/21 (MEDICAID REPLACEMENT - HMO) Candie Burns [id number] Candie Burns Notes Date Note Type Note Provider Name and Address Organization Details Recorded Time 01/10/2023 text/html patient presents for hysteroscopy D&C. Phillip Moore MD [address], [place], [address], [facility] 01/10/2023 11:38:47 01/17/2023 text/html This patient is a 37-year-old female presents for irregular bleeding follow-up. She would like to be treated with Nexplanon for irregular bleeding and prevention of endometrial cancer. She had hysteroscopy D and C for suspected polyp. No polyp was observed. Endometrial curettage was performed. The biopsy was normal. We discussed our plan going forward and I agreed to insert Nexplanon. She will return for that procedure. Phillip Moore MD [address], [place], [address], [facility] 01/17/2023 10:00:04 01/24/2023 text/html Presents for Nexplanon insertion for abnormal vaginal bleeding. Phillip Moore MD [address], [place], [address], [facility] 01/24/2023 20:44:24 03/07/2023 text/html 7-year-old femal e who presents for treatment of abnormal uterine bleeding with Nexplanon and ovarian cyst. Ovarian cysts resolve on recent ultrasound. She continues to have some bleeding. Was a little painful. Overall it has improved her bleeding and her pain. Continue to observe. We spent over 20 minutes [id number]. More than 50% was counseling she will follow-up as needed Phillip Moore MD [address], [place], [address], [facility] 03/07/2023 12:13:59 OBGyn Episode Ob Episode Information Episode Created Date Number of Fetuses Patient Bloodtype Patient rh Status Prepregnancy Weight lbs Domestic Partner Domestic Partner Phone Father Name Rib Trim Separator Status 09/02/20 22 1 CLOSED Fetus Data First Name Last Name Admitted to NICU Weight (g) Sex Living Outcome Pediatric Complications Fetus ID Race Codes Race Delivery Type [id number] [id number] F [id number] Vaginal Delivery Luis Calculation Initial Luis Date Initial Exam Date Initial Exam Provider Initial Ultrasound Date Last Menstrual Period Date Ultra Sound Weeks Gestation 0 Eighteen To Twenty Week Luis Update Ultra Sound Date Fundal Height At Umbil Quickening Date Ultra Sound Latest Weeks Gestation Final Luis Confirmed By Final Luis Confirmed Date Final Luis Date Ultra Sound Latest Days Gestation 0 0 Menstrual History Last Menstrual Date Menses Monthly On Bcp Conception Prior Menses Frequency Hcg Plus Date Menarche Onset Age Delivery Information Delivery Date Delivery Type Labor Anesthesia Weeks Gestation Incision Type Labor Labor Length Hrs Delivered By Post Complications Tubal Sterilization Discharge Date Comments 6 Discharge Information Feeding Method Contraceptive Method Maternal HG B and HCT Levels Ob Episode Information Episode Created Date Number of Fetuses Patient Bloodtype Patient rh Status Prepregnancy Weight lbs Domestic Partner Domestic Partner Phone Father Name Rib Trim Separator Status 09/02/20 22 1 CLOSED Fetus Data First Name Last Name Admitted to NICU Weight (g) Sex Living Outcome Pediatric Complications Fetus ID Race Codes Race Delivery Type [id number] F [id number] Vaginal Delivery Luis Calculation Initial Luis Date Initial Exam Date Initial Exam Provider Initial Ultrasound Date Last Menstrual Period Date Ultra Sound Weeks Gestation 0 Eighteen To Twenty Week Luis Update Ultra Sound Date Fundal Height At Umbil Quickening Date Ultra Sound Latest Weeks Gestation Final Luis Confirmed By Final Luis Confirmed Date Final Luis Date Ultra Sound Latest Days Gestation 0 0 Menstrual History Last Menstrual Date Menses Monthly On Bcp Conception Prior Menses Frequency Hcg Plus Date Menarche Onset Age Delivery Information Delivery Date Delivery Type Labor Anesthesia Weeks Gestation Incision Type Labor Labor Length Hrs Delivered By Post Complications Tubal Sterilization Discharge Date Comments 1 Discharge Information Feeding Method Contraceptive Method Maternal HG B and HCT Levels
--- OUTSIDE RECORDS SUMMARY | 2025-04-05 13:31 | XMS_ITS | Continuity of Care Document ---
Author Organization [facility] Address [address] [place] [address] Phone Care Team Providers Care Cement Or Concrete Finishing Supervisor Name Role Phone Tay Fuller MD Unavailable Unavailable Allergies, Adverse Reactions, Alerts Substance Reaction Status Criticality tramadol Active No Information Medications Medication Instructions Dosage Effective Dates (start - stop) Status Comments PHENERGAN 25MG 25 MG ORAL take 1/2 tab every 6 hrs prn nausea - Active Tylenol-Codeine #3 300 mg-30 mg tablet take 1 tablet by oral route every 6 hours as needed - Active Procedures Procedure Date Office/outpatient visit,[facility] 2016 Foot/toe Metatarsal FX W/o Manip Each Casimiro ne Advance Directives Directive Yes / No Effective Date File Name No Information Encounters Encounter Description Practice Location Reason(s) For Visit Diagnoses Date Provider Providers Copied on Encounter Office/outpat ient visit,[facility], [address] [place] [address], [id number], tel:[phone] [facility] foot (chief complaint) Closed nondisplaced fracture of proximal phalanx of lesser toe of left foot, initial encounter 7 Jonny Cross. [address] [place] [address], [id number] , . tel:[phone] Family History Family Member Type Diagnosis Age At Onset No Information Payers Payer name Insurance type Covered libertarian ID Authoriza tion(s) IDPA [id number] Social History Type Description Quantity Date Captured Comments Alcohol Use Details Unknown Caffeine Use Details Unknown Tobacco Use Status Smoking Status Former smoker Non-Smoking Tobacco Use Details : No Details Available : No Details Available Sex Female Vital Signs Date / Time: Height Weight BMI Pulse Rate Blood Pressure Temperature Respiratory Rate Body Surface Area Head Circumference Head Circ. Percentile Wt./Martínez. Percentile BMI percentile Pulse Ox Inhaled Ox 8:45 AM 62.00 in 92.986 kg (205.00 lbs) 37.4 9 kg/m eter (2) 100 /min 126/93 mm[Hg] Chief Complaint And Reason For Visit From encounter dated '08/01/2017 08:30'. foot (chief complaint) Reason For Referral Reason For Referral No Information History Of Present Illness Encounter Date Complaint History Of Prese nt Illness foot Functional Status Date Functional Assessmen t No Information Instructions Date Instruction Additional Infor mation No Information Assessments Type Assessment Date assessment Closed nondisplaced fracture of proximal phalanx of lesser toe of left foot, initial encounter Patient Care Teams Name Effective Dates (start - stop) Status Members No Information
--- OUTSIDE RECORDS SUMMARY | 2025-04-05 13:31 | XMS_ITS | Continuity of Care Document ---
Author Organization [facility] Address [address] [place] [address] Phone Care Team Providers Care Client Relationship Consultant Name Role Phone Ebenezer Calabrese APRN Unavailable Unavailable Allergies, Adverse Reactions, Alerts Substance Reaction Status Criticality No Known Allergies Active No Inform ation Medications Medication Instructions Dosage Effective Dates (start - stop) Status Comments venlafaxine 75 mg tablet take 1 tablet b y oral route every day with food 75 MG - Active hydrochlorothiazide 25 mg tablet take 1 tablet by oral route every day 25 MG - Active cyclobenzaprine 10 mg tablet take 1 tablet by oral route 2 times every day 10 MG - Active amitriptyline 50 mg tablet take 1 tablet by oral route every day at bedtime 50 MG - Active Toviaz 4 mg tablet,extended release take 1 tablet by oral route every day 4 MG - Active Procedures Procedure Date BVI BLADDER VOLUME INDEX * URINALYSIS, NONAUTO W/SCOPE NEW PT VISIT LEVEL Advance Directives Directive Yes / No Effective Date File Name No Information Encounters Encounter Description Practice Location Reason(s) For Visit Diagnoses Date Provider [facility], [address] [place] [address], [id number], tel:[phone] [facility] No Information Guanakito Sol. [address] [place] [address], [id number]. tel:[phone] NEW PT VISIT LEVEL [facility] [address] [facility], [place], [place], [id number], tel:[phone] [facility] Urinary complaints (chief complaint) Feeling of incomplete bladder emptyingDietary counseling and surveillanceUrgency of urinationUrge incontinence Guanakito Sol. [address] [place], [place], [id number]. tel:[phone] Family History Family Member Type Diagnosis Age At Onset Mother Problem malignant neoplasm of ovary Maternal grandmother Problem malignant n eoplasm of breast in first degree relative Payers Payer name Insurance type Covered alliance party ID Authoriza tion(s) No Information Social History Type Description Quantity Date Captured Comments Alcohol Use Details Unknown Caffeine Use Details Unknown Tobacco Use Status No Information Smoking Status No Information Sex Female Chief Complaint And Reason For Visit No Information Plan Of Treatment Date Type Action Status Goal Dietary management education , guidance, and counseling completed History Of Present Illness Encounter Date Complaint History Of Prese nt Illness Urinary complaints The onset was 6 months ago. Patient reports no pain. It occurs constantly. The problem is worse. Causes of the leakage include coughing and sneezing. Associated symptoms include urinary frequency (every 1 hour), leakage requiring pads # of pads used: 3, nocturia (1-2 times per night), slow stream and urgency. Pertinent negatives include constipation, dysuria, hematuria, incomplete emptying and pelvic pain. Instructions Date Instruction Additional Infor daniela Frequency and urgenc y over the past 6 months with some incontinence. After the pelvic Feroz and listening to her symptoms we are going to treat her for urge incontinence. Related to Urgency of urination 35-year-old female sunil evans reports that 6 months ago she started having increased frequency nocturia and incontinence. Today's urinalysis is negative for UTI negative for microscopic hematuria. 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 Somewhat confusing but it sounds like possibly a urethral dilation. Today a 16 Tamazight catheter was placed without difficulties. She empties well with less than 40 cc out post urination. She was able to hold 300 cc but signs of bladder irritation with some detrusor overactivity. In a supine position with coughing there is no urinary incontinence. Today I have placed her on Toviaz 4 mg daily. We discussed the possible side effects of constipation and dry mouth. Samples were given to her in a prescription was sent to her pharmacy. I will plan on seeing her back in 3 months with reevaluation with a urinalysis bladder scan and symptom analysis. Related to Urge incontinence Bladder scan shows l ess than 60 cc and intermittent straight catheter post void with less than 40 cc out. Related to Feeling of incomplete bladder emptying Dietary management e ducation, guidance, and counseling Related to Dietary counseling and surveillance Assessments Type Assessment Date No Information
--- OUTSIDE RECORDS SUMMARY | 2025-04-05 13:31 | XMS_ITS | Continuity of Care Document ---
Author Organization [employer] Address [address] [place] [address] Phone Care Team Providers Care Financial Aid Coordinator Name Role Phone Jose R Napier DMD [...] Diagnoses Date Provider Providers Copied on Encounter [email or web address], [address], [place], [place], [id number], [place] tel:[phone] [facility] DEN-Dental caries, unspecifiedDEN -Acute apical periodontitis of pulpal origin 7 Karthikeyan Odell. [address], [place], [place], [id number] , [place]. tel:[phone] Referring Provider: Jose R Kays E, [address], [place], [address] . tel:[phone] [facility], [address], [place], [place], [id number], [phone] [facility] DEN-Dental caries, unspecified Maryse Bullock. [address], [place], [place], [id number] , [place]. [phone] Referring Provider: Kobe Dumont, [address], [place], [address] . tel:[phone] [facility], [address], [place], [place], [id number], [place] tel:[phone] [facility] DEN-Encounter for dental exam and cleaning w abnormal findings Nilemarisol Kobe. [address], [place], [place], [id number] , [place]. tel:[phone] Referring Provider: Kobe Dumont, [address], [place], [address] . tel:[phone] [facility] CARE [facility], [address], [place], [place], [id number], [phone] [facility] No Information 1 Naren Foreman. [address] [place], [address], [place]. tel:[phone] Referring Provider: Toni Samuel, [address] [place], [address]. Family History Family Member Type Diagnosis Age At Onset No Information Payers Payer name Insurance type Covered alliance party ID Sharoncarmen raúlesthela(s) Nura [employer] CI [id number] Social History Type Description Quantity Date Captured [...]
--- OUTSIDE RECORDS SUMMARY | 2025-04-05 13:31 | XMS_ITS | Continuity of Care Document ---
Author Organization [facility] Address [address] [place] [phone] Phone Care Team Providers Care Undercover Agent Name Role Phone Ebenezer Calabrese APRN Unavailable [...] Location Reason(s) For Visit Diagnoses Date Provider [facility], [address] [place] [address], [id number], tel:[phone] [facility] No Information Guanakito Sol. [address] [place] [address], [id number]. tel:[phone] NEW PT VISIT LEVEL [facility] [address] [facility], [place], [place], [id number], tel:[phone] [facility] Urinary complaints (chief complaint) Feeling of incomplete bladder emptyingDietary counseling and surveillanceUrgency of urinationUrge incontinence Guanakito Sol. [address] [place], [place], [id number]. tel:[phone] Family History Family Member Type Diagnosis Age At Onset Mother Problem malignant neoplasm of ovary Maternal grandmother Problem malignant n eoplasm of breast in first degree relative Payers Payer name Insurance type Covered republican ID Authoriza tion(s) No Information Social History [...] possibly a urethral dilation. Today a 16 Swedish catheter was placed without difficulties. She empties [...]
--- OUTSIDE RECORDS SUMMARY | 2025-04-05 13:31 | XMS_ITS | Continuity of Care Document ---
Author Organization [facility] Address [address] [place] [address] Phone Care Team Providers Care Quickbooks Bookkeeper Name Role Phone Tay Fuller MD Unavailable [...] needed - Active Procedures Procedure Date Office/outpatient visit,[facility] 2016 Foot/toe Metatarsal FX W/o Manip Each Casimiro ne Advance Directives Directive Yes / No Effective Date File Name No Information Encounters Encounter Description Practice Location Reason(s) For Visit Diagnoses Date Provider Providers Copied on Encounter Office/outpat ient visit,[facility], [address] [place] [address], [id number], tel:[phone] [facility] foot (chief complaint) Closed nondisplaced fracture of proximal phalanx of lesser toe of left foot, initial encounter 7 Jonny Cross. [address] [place] [address], [id number] , . tel:[phone] Family History Family Member Type Diagnosis Age At Onset No Information Payers Payer name Insurance type Covered green party ID Authoriza tion(s) IDPA [id number] Social History Type Description Quantity Date Captured [...]
[2025-04-05 13:34] VITALS: BP 128/86; PULSE 85; RESP 18; TEMP 36.4; O2SAT 99
--- NOTE | 2025-04-05 14:57 | ED.SKABFB ---
HPI - Skin/Abscess/Foreign Bdy General Chief complaint: Skin/Abscess/Foreign Body Stated complaint: knot in arm Time Seen by Provider: 04/05/25 13:45 Source: patient and RN notes reviewed Mode of arrival: ambulatory Limitations: no limitations History of Present Illness HPI narrative: 39-year-old female presents Express Care complaining of possible blood clot in her right arm. Patient said a couple days ago she got a blood drawn in her right AC noticed bruising around the area. However since then she has noticed a knot in the distal part of her right forearm is swollen and reports having a burning sensation throughout her right forearm. She also reports paresthesias to her right thumb and index finger. Patient denies any chest pain or shortness of breath, or any history of DVTs. Patient has not tried any [id number] to help with symptoms. Related Data Home Medications ?Medication ?Instructions ?Recorded ?Confirmed ?Last Taken ?Type etonogestrel 68 mg subdermal See Rx Instructions .Route .COMPLEX 06/23/24 04/03/25 Unknown History implant (Nexplanon) Allergies Allergy/AdvReac Type Severity Reaction Status Date / Time No Known Allergies Allergy Verified 04/05/25 13:36 Review of Systems Review of Systems: CONSTITUTIONAL: Denies fever, chills, or sweats. EYES: Denies visual changes, redness, or discharge. ENT: Denies rhinorrhea, congestion, sore throat, or otalgia. CARDIOVASCULAR: Denies chest pain, palpitations, or edema. RESPIRATORY: Denies cough or dyspnea. GASTROINTESTINAL: Denies abdominal pain, nausea, vomiting, or diarrhea. GENITOURINARY: Denies dysuria or hematuria. SKIN: Denies rash or itching. MUSCULOSKELETAL: Denies back pain, joint pain, or myalgia. Positive for right arm swelling and pain. NEUROLOGIC: Denies headache, or weakness. Positive for numbness and tingling to right arm. PSYCHIATRIC: Denies anxiety or depression. All other systems reviewed are negative, except as documented in HPI. [facility] Past Medical History Medical History Dizziness Dysuria BMI 50.0-59.9, adult Hypertension Heartburn Left knee pain Elevated BP without diagnosis of hypertension Acute sinusitis B12 deficiency Tachycardia Screening for diabetes mellitus Hyperlipidemia COVID 08/29/22 Morbid obesity with BMI of 45.0-49.9, adult Encounter to establish care Migraine headache without aura Anemia History of frequent headaches Anxiety Surgical History Surgical History History of tubal ligation Family History Family History Grandparent Cancer Father Diabetes mellitus Hypertension Mother Depression Anxiety Daughter Anxiety Depression Social History Social History Smoking status: Never smoker Alcohol intake: never Substance use: never Substance use type: does not use Do You Feel Safe in your Home?: Yes Lack of Transportation: No Lack of Food: Never True Current Housing: I Have Housing Concerned About Future Housing: No Difficulty Paying Gas/Electric Bills: No Difficulty Paying for Meds: No Currently Unemployed: No Education: High School Diploma/GED Difficulty w/ Childcare or Family Care: No Living arrangements: with family Occupation/Education: occupation Additional occupation/education comments: [employer] Gender identity (if verbalized by the patient): Female Comments At the time of my signature, I reviewed and agree with the nursing past medical, surgical, social, and family history. There is no relevant family history pertinent to the patient complaint. Exam Narrative: GENERAL: This is a well-nourished, well-developed adult, in no apparent distress. They are non ill-appearing, nontoxic appearing. HEAD: normocephalic, atraumatic. EYES: Sclera clear/white. Conjunctiva normal. Vision is grossly intact. Extraocular movements intact EARS: External ears normal, NOSE: External nose normal THROAT: Mucous membranes moist, NECK: Neck supple CARDIOVASCULAR: Regular rate and rhythm without murmurs, gallops, or rubs. RESPIRATORY: Clear to auscultation. Breath sounds equal bilaterally. No wheezes, rales, or rhonchi. SKIN: warm, Dry, intact with no suspicious lesions or rash, good texture and turgor. NEURO: awake, alert, and oriented to person, place and time. There were no obvious focal neurologic abnormalities. EXTREMITIES: Right arm: There is swelling and tenderness to the posterior distal forearm. No bruising or redness. Small knot is palpated in the swelling. Patient reports Paresthesia right thumb and right index finger however she is able to feel me touch her right thumb and index finger. Negative Tinel sign or Phalen's test. Radial pulse 2 +and palpable. Neurovascular status intact distal to swelling. Normal flexion extension of right wrist. Patient is able to pronate and supinate her right wrist. BACK: Nontender without deformity Course Course Emergency Course: Portions of this record may have been created with voice recognition software Level of Care: Express Care Visit Vital Signs Vital signs: Vital Signs Temperature 97.5 F L 04/05/25 13:34 Pulse Rate 85 04/05/25 13:34 Respiratory Rate 18 04/05/25 13:34 Blood Pressure 128/86 04/05/25 13:34 Pulse Oximetry 99 04/05/25 13:34 Oxygen Delivery Room Air 04/05/25 13:34 Temperature 97.5 F L 04/05/25 13:34 Pulse Rate 85 04/05/25 13:34 Respiratory Rate 18 04/05/25 13:34 Blood Pressure 128/86 04/05/25 13:34 Pulse Oximetry 99 04/05/25 13:34 Oxygen Delivery Room Air 04/05/25 13:34 Reviewed Transfer Transfered to: [facility] Transportation: Other (Private vehicle) Transfer rationale: Rule out blood clot, ultrasound, who requires higher level care Accepting physician: Kiya GUILLERMO MDM - Skin/Abscess/Foreign Bdy MDM Narrative Medical decision making narrative: Cannot exclude blood clot in patient's right upper extremity. Is recommend the patient stay higher level care and proceed immediately to the ER for further evaluation and management of her symptoms. Patient is agreeable to go to [facility]. Called over [facility] and spoke to Kiya GUILLERMO who is aware of this this patient an accepted the patient for transfer. Patient advised to remain NPO and proceed immediately to the ER. Differential Diagnosis Differential diagnosis: Likely other (DVT, superficial thrombophlebitis, hematoma) Critical Care Time Critical Care Time Critical Care Time: No Discharge Plan Discharge Clinical Impression: Localized swelling of right forearm, Paresthesia Patient Disposition: Acute Care Hospital Condition: Stable Patient Language: Upper Sorbian Prescriptions: No Action Nexplanon 68 mg Implant See Rx Instructions .ROUTE .COMPLEX Rx Instructions: subdermally metoprolol succinate 100 mg tablet extended release 24 hr 100 mg PO DAILY Qty: 30 11RF escitalopram oxalate [Lexapro] 20 mg tablet 20 mg PO DAILY Qty: 90 3RF Rx Instructions: ok to fill early alprazolam 1 mg tablet 1 mg PO BID PRN (Reason: anxiety) Qty: 60 5RF Ubrelvy 100 mg tablet 100 mg PO .PRN PRN (Reason: Migraine Headache) Qty: 9 11RF Rx Instructions: as a single dose; may repeat once in >=2 hours after first dose if needed Follow-up/Referrals: Mare Sneed NP [Primary Care Provider] - Time of Disposition: 14:04
== END 2025-04-05 14:04 | disposition short-term general hospital (02) ==
PROVIDERS: PCP Nurse Practitioner Family
DX: R22.31 Localized swelling, mass and lump, right upper limb (principal); R20.2 Paresthesia of skin; E78.5 Hyperlipidemia, unspecified; E66.01 Morbid (severe) obesity due to excess calories; Z68.43 Body mass index [BMI] 50.0-59.9, adult; F41.9 Anxiety disorder, unspecified; Z86.16 Personal history of COVID-19
CPT/HCPCS: 99212; G0463

== ENCOUNTER 2025-04-05 14:31 | Emergency (ER) | payer OTHER, SELFPAY ==
--- NOTE | ~2025-04-05 | US_ITS ---
EXAMINATION: US venous doppler UE RT DATE: 04/05/2025 15:30 INDICATION: Right arm pain TECHNIQUE: Duenas scale images with and without compression and Doppler images of the right upper extre mity veins were obtained. COMPARISON: None. FINDINGS: The right internal jugular vein, subclavian vein, axillary vein, brachial veins, basilic vein, cephal ic vein, radial vein, and ulnar vein are patent. IMPRESSION: 1. Patent right upper extremity veins. No evidence of deep venous thrombosis. Reviewed, dictated and finalized at location A.
[2025-04-05 14:32] VITALS: BP 142/100; PULSE 86; RESP 16; TEMP 36.6; O2SAT 97
--- OUTSIDE RECORDS SUMMARY | 2025-04-05 14:34 | XMS_ITS | Continuity of Care Document ---
Author Organization [facility] Address [address] [place] [address] Phone Care Team Providers Care Transportation Design Engineer Name Role Phone Tay Fuller MD Unavailable [...] needed - Active Procedures Procedure Date Office/outpatient visit,[facility] 2016 Foot/toe Metatarsal FX W/o Manip Each Casimiro ne Advance Directives Directive Yes / No Effective Date File Name No Information Encounters Encounter Description Practice Location Reason(s) For Visit Diagnoses Date Provider Providers Copied on Encounter Office/outpat ient visit,[facility], [address] [place] [address], [id number], tel:[phone] [facility] foot (chief complaint) Closed nondisplaced fracture of proximal phalanx of lesser toe of left foot, initial encounter 7 Jonny Cross. [address] [place] [address], [id number] , . tel:[phone] Family History Family Member Type Diagnosis Age At Onset No Information Payers Payer name Insurance type Covered democrat ID Authoriza tion(s) IDPA [id number] Social History Type Description Quantity Date Captured [...]
--- OUTSIDE RECORDS SUMMARY | 2025-04-05 14:34 | XMS_ITS | Continuity of Care Document ---
Author Organization [facility] Address [address] [place] [address] Phone Care Team Providers Care Parachute Taper Name Role Phone Ebenezer Calabrese APRN Unavailable [...] Location Reason(s) For Visit Diagnoses Date Provider [facility], [address] [place] [address], [id number], tel:[phone] [facility] No Information Guanakito Sol. [address] [place] [address], [id number]. tel:[phone] NEW PT VISIT LEVEL [facility] [address] [facility], [place], [place], [id number], tel:[phone] [facility] Urinary complaints (chief complaint) Feeling of incomplete bladder emptyingDietary counseling and surveillanceUrgency of urinationUrge incontinence Guanakito Sol. [address] [place], [place], [id number]. tel:[phone] Family History Family Member Type Diagnosis Age At Onset Mother Problem malignant neoplasm of ovary Maternal grandmother Problem malignant n eoplasm of breast in first degree relative Payers Payer name Insurance type Covered constitution party ID Authoriza tion(s) No Information Social [...] possibly a urethral dilation. Today a 16 Pashto catheter was placed without difficulties. She empties [...]
--- OUTSIDE RECORDS SUMMARY | 2025-04-05 14:34 | XMS_ITS | Continuity of Care Document ---
Author Organization [employer] Address [address] [place] [address] Phone Care Team Providers Care Outer Diameter Grinder Tool Name Role Phone Jose R Napier DMD [...] Diagnoses Date Provider Providers Copied on Encounter [employer] [facility] [employer] [facility], [address], [place], [place], [id number], [place] tel:[phone] [facility] DEN-Dental caries, unspecifiedDEN -Acute apical periodontitis of pulpal origin 7 Karthikeyan Odell. [address], [place], [place], [id number] , [place]. tel:[phone] Referring Provider: Jose R Kays E, [address], [place], [address] . tel:[phone] [facility], [address], [place], [place], [id number], [phone] [facility] DEN-Dental caries, unspecified Maryse Bullock. [address], [place], [place], [id number] , [place]. [phone] Referring Provider: Kobe Dumont, [address], [place], [address] . tel:[phone] [facility], [address], [place], [place], [id number], [place] tel:[phone] [facility] DEN-Encounter for dental exam and cleaning w abnormal findings Nilemarisol Kobe. [address], [place], [place], [id number] , [place]. tel:[phone] Referring Provider: Kobe Dumont, [address], [place], [address] . tel:[phone] [facility] CARE [facility], [address], [place], [place], [id number], [phone] [facility] No Information 1 Naren Foreman. [address] [place], [address], [place]. tel:[phone] Referring Provider: Toni Samuel, [address] [place], [address]. Family History Family Member Type Diagnosis Age At Onset No Information Payers Payer name Insurance type Covered libertarian ID Sharoncarmen raúlesthela(s) Nura [employer] CI [id number] Social History Type Description Quantity Date Captured [...]
--- NOTE | 2025-04-05 14:57 | ED_ITS ---
HPI - Extremity Problem General Chief complaint: Extremity Problem,Nontraumatic <Michelle Denny APRN - Last Filed: 04/05/25 15:02> Stated complaint: swelling in R arm <Michelle Denny APRN - Last Filed: 04/05/25 15:02> Time Seen by Provider: 04/05/25 15:50 <Michelle Denny APRN - Last Filed: 04/05/25 15:02> Focused HPI: Patient is a 39-year-old female who presents to the ER with complaints of pain in her R antecubital area. She reports she had a routine blood draw on Tuesday, 4 days ago, and developed a hematoma over the insertion site. Patient now endorses pain in her right arm that radiates down to her hands. She endorses numbness and tingling in her 2nd and 3rd digits on her right hand. Patient denies any history of blood clots. She denies any shortness of breath, chest pain, lightheadedness, or recent fevers. GENERAL: Well-appearing, well-nourished, and in no acute distress. HEAD: Normocephalic, atraumatic. CHEST: Clear to auscultation. ?No respiratory distress. HEART: Regular rate and rhythm.? NEURO: ?Alert and oriented x3. Patient screened in triage and initial orders placed.? ?Additional care and disposition to be based upon?diagnostic testing and treatment. <Michelle Denny APRN - Last Filed: 04/05/25 15:02> History of Present Illness HPI Narrative: Agree with HPI. <Bebo Yousif MD - Last Filed: 04/05/25 16:02> Related Data Home medications: Home Medications ?Medication ?Instructions ?Recorded ?Confirmed ?Last Taken ?Type etonogestrel 68 mg subdermal See Rx Instructions .Route .COMPLEX 06/23/24 04/03/25 Unknown History implant (Nexplanon) <Michelle Denny APRN - Last Filed: 04/05/25 15:02> Allergies/Adverse reactions: Allergies Allergy/AdvReac Type Severity Reaction Status Date / Time No Known Allergies Allergy Verified 04/05/25 13:36 <Michelle Denny APRN - Last Filed: 04/05/25 15:02> Review of Systems Constitutional: Constitutional: Reports no additional constitutional complaints <Bebo Yousif MD - Last Filed: 04/05/25 16:02> Cardiovascular: Cardiovascular: Reports no additional cardiovascular complaints <Bebo Yousif MD - Last Filed: 04/05/25 16:02> Respiratory: Respiratory: Reports no additional respiratory complaints <Bebo Yousif MD - Last Filed: 04/05/25 16:02> Musculoskeletal: Musculoskeletal: Reports no additional musculoskeletal complaints <Bebo Yousif MD - Last Filed: 04/05/25 16:02> Integumentary/Breasts: Skin/Breast: Reports system reviewed and no additional complaints, except as docu <Bebo Yousif MD - Last Filed: 04/05/25 16:02> PMFSH Past Medical History Medical History: Medical History Dizziness Dysuria BMI 50.0-59.9, adult Hypertension Heartburn Left knee pain Elevated BP without diagnosis of hypertension Acute sinusitis B12 deficiency Tachycardia Screening for diabetes mellitus Hyperlipidemia COVID 08/29/22 Morbid obesity with BMI of 45.0-49.9, adult Encounter to establish care Migraine headache without aura Anemia History of frequent headaches Anxiety <Michelle Denny APRN - Last Filed: 04/05/25 15:02> Surgical History Surgical History: Surgical History History of tubal ligation <Michelle Denny APRN - Last Filed: 04/05/25 15:02> Family History Family History: Family History Grandparent Cancer Father Diabetes mellitus Hypertension Mother Depression Anxiety Daughter Anxiety Depression <Michelle Denny APRN - Last Filed: 04/05/25 15:02> Social History Social History: Social History Smoking status: Never smoker Alcohol intake: never Substance use: never Substance use type: does not use Do You Feel Safe in your Home?: Yes Lack of Transportation: No Lack of Food: Never True Current Housing: I Have Housing Concerned About Future Housing: No Difficulty Paying Gas/Electric Bills: No Difficulty Paying for Meds: No Currently Unemployed: No Education: High School Diploma/GED Difficulty w/ Childcare or Family Care: No Living arrangements: with family Occupation/Education: occupation Additional occupation/education comments: [employer] Gender identity (if verbalized by the patient): Female <Michelle Denny APRN - Last Filed: 04/05/25 15:02> Exam Narrative: GENERAL: Well-appearing, well-nourished, and in no acute distress. HEAD: Normocephalic, atraumatic. CHEST: Clear to auscultation. No respiratory distress. HEART: Regular rate and rhythm. Normal peripheral pulses. EXTREMITIES: Normal range of motion. No edema. SKIN: Warm, dry, no rash. Bruising right antecubital fossa. No palpable cord. NEURO: Alert and oriented x3. PSYCH: Normal mood and affect. <Bebo Yousif MD - Last Filed: 04/05/25 16:02> Course Course Emergency Course: Likely subcutaneous hematoma/contusion from blood draw/Lung vein. No palpable cord or superficial thrombophlebitis seen on ultrasound. Recommend warm compresses as well as anti-inflammatories. <Bebo Yousif MD - Last Filed: 04/05/25 16:02> Vital Signs Vital signs: Vital Signs Temperature 98 F 04/05/25 14:32 Pulse Rate 86 04/05/25 14:32 Respiratory Rate 16 04/05/25 14:32 Blood Pressure 142/100 H 04/05/25 14:32 Pulse Oximetry 97 04/05/25 14:32 Oxygen Delivery Room Air 04/05/25 14:32 Temperature 98 F 04/05/25 14:32 Pulse Rate 85 04/05/25 15:55 Respiratory Rate 14 04/05/25 15:55 Blood Pressure 138/97 H 04/05/25 15:55 Pulse Oximetry 97 04/05/25 15:55 Oxygen Delivery Room Air 04/05/25 14:32 <Michelle Denny APRN - Last Filed: 04/05/25 15:02> Vital Signs Temperature 98 F 04/05/25 14:32 Pulse Rate 86 04/05/25 14:32 Respiratory Rate 16 04/05/25 14:32 Blood Pressure 142/100 H 04/05/25 14:32 Pulse Oximetry 97 04/05/25 14:32 Oxygen Delivery Room Air 04/05/25 14:32 Temperature 98 F 04/05/25 14:32 Pulse Rate 85 04/05/25 15:55 Respiratory Rate 14 04/05/25 15:55 Blood Pressure 138/97 H 04/05/25 15:55 Pulse Oximetry 97 04/05/25 15:55 Oxygen Delivery Room Air 04/05/25 14:32 <Bebo Yousif MD - Last Filed: 04/05/25 16:02> MDM - Extremity (Nontraumatic) Imaging Data Radiologist's impression: ITS Impressions Venous Doppler Study 04/05/25 15:33 IMPRESSION: 1. Patent right upper extremity veins. No evidence of deep venous thrombosis. <Bebo Yousif MD - Last Filed: 04/05/25 16:02> Discharge Plan Discharge Clinical Impression: Contusion of arm <Michelle Denny APRN - Last Filed: 04/05/25 15:02> Patient Disposition: Home <Michelle Denny APRN - Last Filed: 04/05/25 15:02> Condition: Stable <Michelle Denny APRN - Last Filed: 04/05/25 15:02> Instructions: Contusion in Adults (ED) <Michelle Denny APRN - Last Filed: 04/05/25 15:02> Additional Instructions: Apply warm compresses and take anti-inflammatory medication to help with her healing. Return to the ER if your arm is red and hot, you have chest pain and shortness of breath, you have additional concerns. <Michelle Denny APRN - Last Filed: 04/05/25 15:02> Patient Language: Lebanese <Michelle Denny APRN - Last Filed: 04/05/25 15:02> Prescriptions: New naproxen 375 mg tablet 375 mg PO BID Qty: 14 0RF No Action Nexplanon 68 mg Implant See Rx Instructions .ROUTE .COMPLEX Rx Instructions: subdermally metoprolol succinate 100 mg tablet extended release 24 hr 100 mg PO DAILY Qty: 30 11RF escitalopram oxalate [Lexapro] 20 mg tablet 20 mg PO DAILY Qty: 90 3RF Rx Instructions: ok to fill early alprazolam 1 mg tablet 1 mg PO BID PRN (Reason: anxiety) Qty: 60 5RF Ubrelvy 100 mg tablet 100 mg PO .PRN PRN (Reason: Migraine Headache) Qty: 9 11RF Rx Instructions: as a single dose; may repeat once in >=2 hours after first dose if needed <Michelle Denny APRN - Last Filed: 04/05/25 15:02> Follow-up/Referrals: Mare Sneed NP [Primary Care Provider] - 1 Week <Michelle Denny APRN - Last Filed: 04/05/25 15:02>
--- OUTSIDE RECORDS SUMMARY | 2025-04-05 15:04 | XMS_ITS | Continuity of Care Document ---
Author Organization [facility] Address [address] [place] [address] Phone Care Team Providers Care Pantograph Setter Name Role Phone Tay Fuller MD Unavailable [...] needed - Active Procedures Procedure Date Office/outpatient visit,[facility] 2016 Foot/toe Metatarsal FX W/o Manip Each Casimiro ne Advance Directives Directive Yes / No Effective Date File Name No Information Encounters Encounter Description Practice Location Reason(s) For Visit Diagnoses Date Provider Providers Copied on Encounter Office/outpat ient visit,[facility], [address] [place] [address], [id number], tel:[phone] [facility] foot (chief complaint) Closed nondisplaced fracture of proximal phalanx of lesser toe of left foot, initial encounter 7 Jonny Cross. [address] [place] [address], [id number] , . tel:[phone] Family History Family Member Type Diagnosis Age At Onset No Information Payers Payer name Insurance type Covered green party ID Authoriza tion(s) IDPA [id number] Social History Type Description Quantity Date Captured [...]
--- OUTSIDE RECORDS SUMMARY | 2025-04-05 15:04 | XMS_ITS | Continuity of Care Document ---
Author Organization [employer] [facility] [employer] Address [address] [place] [address] Phone Care Team Providers Care Dry Paste Supervisor Name Role Phone Jose R Napier [...] Diagnoses Date Provider Providers Copied on Encounter [facility], [address], [place], [place], [id number], [place] tel:[phone] [facility] DEN-Dental caries, unspecifiedDEN -Acute apical periodontitis of pulpal origin 7 Karthikeyan Odell. [address], [place], [place], [id number] , [place]. tel:[phone] Referring Provider: Jose R Kays E, [address], [place], [address] . tel:[phone] [facility], [address], [place], [place], [id number], [phone] [facility] DEN-Dental caries, unspecified Maryse Bullock. [address], [place], [place], [id number] , [place]. [phone] Referring Provider: Kobe Dumont, [address], [place], [address] . tel:[phone] [facility], [address], [place], [place], [id number], [place] tel:[phone] [facility] DEN-Encounter for dental exam and cleaning w abnormal findings Nilemarisol Kobe. [address], [place], [place], [id number] , [place]. tel:[phone] Referring Provider: Kobe Dumont, [address], [place], [address] . tel:[phone] [facility], [address], [place], [place], [id number], [phone] [facility] No Information 1 Naren Foreman. [address] [place], [address], [place]. tel:[phone] Referring Provider: Toni Samuel, [address] [place], [address]. Family History Family Member Type Diagnosis Age At Onset No Information Payers Payer name Insurance type Covered green party ID Sharoncarmen raúlesthela(s) Nura [employer] CI [id number] Social History Type Description Quantity Date Captured [...]
--- OUTSIDE RECORDS SUMMARY | 2025-04-05 15:04 | XMS_ITS | Continuity of Care Document ---
Author Organization [facility] Address [address] [place] [address] Phone Care Team Providers Care Health Practice Manager Name Role Phone Ebenezer Calabrese APRN Unavailable [...] Location Reason(s) For Visit Diagnoses Date Provider [facility], [address] [place] [address], [id number], tel:[phone] [facility] No Information Guanakito Sol. [address] [place] [address], [id number]. tel:[phone] NEW PT VISIT LEVEL [facility] [address] [facility], [place], [place], [id number], tel:[phone] [facility] Urinary complaints (chief complaint) Feeling of incomplete bladder emptyingDietary counseling and surveillanceUrgency of urinationUrge incontinence Guanakito Sol. [address] [place], [place], [id number]. tel:[phone] Family History Family Member Type Diagnosis Age [...] possibly a urethral dilation. Today a 16 Irish catheter was placed without difficulties. She empties [...]
--- NOTE | 2025-04-05 15:48 | PC.NURSE ---
Pt. has no wound, rash or area of skin concern to RUE. Pt. reports tingling to R. forearm and R. wrist. R. forearm is tender to palpation. RUE is warm, dry and capillary refill is WNL.
[2025-04-05 15:55] VITALS: BP 138/97; PULSE 85; RESP 14; O2SAT 97
== END 2025-04-05 16:15 | disposition home or self-care (01) ==
PROVIDERS: Emergency Provider Emergency Medicine; PCP Nurse Practitioner Family
DX: L76.32 Postprocedural hematoma of skin and subcutaneous tissue following other procedure (principal); I10 Essential (primary) hypertension; E53.8 Deficiency of other specified B group vitamins; E78.5 Hyperlipidemia, unspecified; E66.01 Morbid (severe) obesity due to excess calories; Z68.43 Body mass index [BMI] 50.0-59.9, adult; F41.9 Anxiety disorder, unspecified; Z86.16 Personal history of COVID-19; Z86.2 Personal history of diseases of the blood and blood-forming organs and certain disorders involving the immune mechanism
CPT/HCPCS: 93971; 99284